=== PATIENT | female | born 1980 | race African-American/Black ===

== ENCOUNTER 2016-09-11 18:48 | Inpatient (IN) ==
[2016-09-11 21:26] LABS: Basophils # 0.1 10*3/uL (0.0-0.2); Basophils % 0.6 % (0.0-0.8); Hematocrit 34.3 VOL% (35.7-47.0); Hemoglobin 11.6 GM/DL (12.0-16.0); Immature Granulocytes % 1.8 %; Immature Granulocytes Absolute 0.21 #; Lymphocytes % 8.7 % (21.3-54.2); Mean Corpuscular HGB Conc 33.8 GM/DL (32-36); Mean Corpuscular Hemoglobin 30 PG (27-34); Mean Corpuscular Volume 87.5 FL (87-102); Mean Platelet Volume 10.6 FL (9.6-12.0); Monocytes # 0.2 10*3/uL (0.11-0.8); Monocytes % 1.5 % (1.7-12.7); Neutrophils # 10.4 10*3/uL (1.4-7.4); Neutrophils % 87.4 % (38.7-73.9); Platelet Count 272 T/CUMM (130-400); Red Blood Count 3.92 MC/CUMM (3.8-5.5); Red Cell Distribution Width 16.4 % (9.3-17.3); White Blood Count 11.8 T/CUMM (4-12)
[2016-09-11 21:43] LABS: Alanine Aminotransferase 47 U/L (13-56); Albumin 2.2 G/DL (3.4-5.0); Alkaline Phosphatase 103 U/L (45-117); Aspartate Amino Transferase 92 U/L (0-37); Bilirubin,Total < 0.39 MG/DL (0.2-1.0); Blood Urea Nitrogen 44 MG/DL (7-18); Calcium 8.6 MG/DL (8.5-10.1); Glucose 147 MG/DL (74-106); Osmolality,Calculated 277.5 MOS/KG (273-304); Potassium 3.4 MMOL/L (3.5-5.1); Sodium 132 MMOL/L (136-145); Total Protein 7.7 G/DL (6.4-8.3); Troponin I Only < 0.015 NG/ML (0.00-0.045)
[2016-09-11 21:52] LABS: Band Neutrophils 1 % (0-10); Lymphocytes 6 % (20-55); Platelet Estimate Normal; Polychromasia Slight; Segmented Neutrophils 90 % (50-85); Total Cells Counted 100
[2016-09-11] MEDS ORDERED: ACETAMINOPHEN 325 MG TABLET PO ONE (22:07)
[2016-09-11] MEDS ORDERED: SODIUM CHLORIDE 0.9% 500 ML IV STA (22:08)
[2016-09-11] MEDS ORDERED: ACETAMINOPHEN 325 MG TABLET ONE (23:03)
[2016-09-11 23:12] LABS: Amorphous Crystals,Urine Occasional /HPF (Few); Apearance,Urine CLOUDY (Clear); Bilirubin,Urine Negative (Negative); Blood, Urine Small mg/dL (Negative); Glucose,Urine (UA) 50 mg/dL (Negative); Ketones,Urine Negative (Negative); Nitrite,Urine Negative (Negative); Protein,Urine >=500 MG/DL; RBC,Urine 2 /HPF (0-4); Squamous Epithelial Cell,Urine Occasional /HPF (0-10); Urine Color Amber (Yellow); Urine Specific Gravity 1.017 (1.001-1.035); Urine Urobilinogen < 2.0 EU/DL (0.2-1.0); WBC,Urine 2 /HPF (0-6)
[2016-09-11] MEDS ORDERED: LEVOFLOXACIN INJ 500 MG in PREMIX 1 EACH IV STA (23:42)
[2016-09-11] MEDS ORDERED: DILTIAZEM 50 MG/10 ML VIAL IV STA (23:43)
[2016-09-11] MEDS ORDERED: LEVOFLOXACIN INJ 100 ML IV ONE (23:58)
[2016-09-12 00:05] LABS: INR 1.2; PT Patient Result 12.4 SECS
--- NOTE | 2016-09-12 00:25 | Emergency Department Note ---
IJhon Mantricia, am scribing for, and in the presence of, Tej Acuña M.D. 21:00. IArianne Howard T, M.D., personally performed the services described in this documentation, ascribed by Jodie Ferreira in my presence, and it is both accurate and complete . Arrival - Arrival Chief Complaint: Non-Specific Stated Complaint: SOB/UNABLE TO KEEP ANYTHING DOWN/PROBLEMS WITH RX ED Nursing Triage Note: Pt to triage with c/o not feeling well. Family states pt has not been eating, feeling very nausea,and weakness. Pt does states she had some medication change recently, but she was feeling like this before the medication change. Mode of Arrival: Wheelchair Limitations: No Limitations Source: Patient, Family Time Seen by Provider: 09/11/16 20:41 - History of Present Illness HPI Narrative: Pt is a 35 y/o black female arriving to ED via wheelchair with c/o body aches that onset 4 days ago. Pt also c/o generalized weakness, SOB, nausea, and waxing and waning chest pain. Pt is a very poor historian but states that she has been "feeling bad" all week. She also reports that she has been retaining fluid and has gained 100 pounds within 2 years. Pt was recently Dx with HTN and DM and is currently taking both Metformin and 40 units of insulin daily. Family is worried that pt is undergoing CHF. No other complaints were reported to ED. Onset (ago): day(s) Consistency: constant Severity: mild Allergies/Adverse Reactions: Allergies Allergy/AdvReac Type Severity Reaction Status Date / Time No Known Allergies Allergy Unverified 09/11/16 19:20 Home Medications: Home Medications Medication Instructions Recorded Confirmed Type Atenolol 50 mg PO DAILY 09/11/16 09/11/16 History Chlorthalidone 25 mg PO DAILY 09/11/16 09/11/16 History Insulin Degludec [Tresiba 40 unit SUBCUT QAM 09/11/16 09/11/16 History Flextouch U-100] Lisinopril 20 mg PO DAILY 09/11/16 09/11/16 History Losartan Potassium 100 mg PO DAILY 09/11/16 09/11/16 History Metformin HCl 1,000 mg PO BID 09/11/16 09/11/16 History Review of System - Review of System 12 point system: reviewed and no additional remarkable complaints except as stated - Review of System Constitutional: Present: weakness, other (body aches). Absent: chills, diaphoresis Respiratory: Present: other (SOB). Absent: cough Gastrointestinal: Present: nausea. Absent: abdominal pain, vomiting, diarrhea Musculoskeletal: Absent: arm pain, back pain, leg pain, neck pain Medical,Surgical,& Family Hx - Medical History Cardio: History of: Hypertension Endocrine: History of: Diabetes Mellitus (IDDM) - Social History Smoking Status: Unknown if ever smoked Frequency of Alcohol Use: None Type of Drug Use: None Exam Vital Signs: Vital Signs Temperature 100.1 F H 09/11/16 19:13 Pulse Rate 144 H 09/11/16 19:13 Respiratory Rate 18 09/11/16 19:13 Blood Pressure 96/67 09/11/16 19:13 O2 Sat by Pulse Oximetry 91 L 09/11/16 19:13 - General General appearance: alert, in no apparent distress, obese - Head Head exam: Present: atraumatic, normocephalic, normal inspection - Eye Eye exam: Present: normal appearance, PERRL, EOMI - ENT ENT exam: Present: normal exam, normal oropharynx, mucous membranes moist, TM's normal bilaterally, normal external ear exam - Neck Neck exam: Present: normal inspection, full ROM, trachea midline. Absent: tenderness - Chest Chest inspection: Present: normal inspection, symmetric chest wall rise. Absent : tenderness - Respiratory Respiratory exam: Present: normal lung sounds bilaterally - Cardiovascular Cardiovascular exam: Present: normal rhythm, tachycardia, normal heart sounds - Abdominal Exam Abdominal exam: Present: soft, distention, normal bowel sounds. Absent: tenderness, guarding, rebound - Extremities Exam Extremities exam: Present: normal inspection, full ROM, normal capillary refill. Absent: tenderness, pedal edema - Back Exam Back exam: Present: normal inspection, full ROM. Absent: tenderness - Neurological Exam Neurological exam: Present: alert, oriented X3, CN II-XII intact, normal gait, reflexes normal - Psychiatric Psychiatric exam: Present: normal affect, normal mood - Skin Skin exam: Present: warm, dry, intact, normal color Course Course Narrative: Medical decision making: Patient's history and exam suggests acute versus chronic illness, possible pneumonia versus mass versus multiple pathologies causing various symptoms. Abnormal chest x-ray. Will initiate treatment for pneumonia and contact hospitalist for admission. Results - Labs CBC & BMP: 09/11/16 21:14 09/11/16 21:14 Lab Results: I have reviewed the patients labs - Diagnostic Findings Procedure: Chest x-ray: image reviewed by me (R middle lobe infiltrate vs mass) Disposition Clinical Impression: Right middle lobe pneumonia, Acute renal insufficiency Case discussed with: patient, patient's family Disposition: Still a Patient Condition: Stable Time of Disposition: 23:43
[2016-09-12] MEDS ORDERED: ACETAMINOPHEN 325 MG TABLET PO PRN (01:36)
[2016-09-12] MEDS ORDERED: GLUCAGON 1 MG VIAL IM PRN (01:36)
[2016-09-12] MEDS ORDERED: DEXTROSE 50% 25 GM/50 ML VIAL IV PRN (01:36)
[2016-09-12] MEDS ORDERED: ONDANSETRON 4 MG/2 ML VIAL IV PRN (01:36)
--- NOTE | 2016-09-12 01:45 | Hospitalist History & Physical ---
Assessment and Plan (1) History of hypertension Status: Acute Current Visit: Yes (2) Diabetes Status: Acute Current Visit: Yes (3) Right middle lobe pneumonia Status: Acute Current Visit: Yes (4) Acute renal insufficiency Status: Acute Assessment and plan: Our plan for this patient will be admitting her to our service. I want to have her kidneys evaluated with a renal ultrasound and nephrology to see her. She has never seen a kidney specialist before. She is only been diagnosed recently told that she has had some kidney problems but she was real vague about what she was told. And will order a spot protein creatinine ratio in addition to the ultrasound. Her chest x-ray is significant for a middle lobe pneumonia although this could be a possible mass I would like pulmonary to see her because of this chest x-ray. Patient's family was concerned about heart failure but BNP is not elevated. Will reevaluate patient in the morning and adjust plans appropriate. Current Visit: Yes History of Present Illness Chief complaint: Just not feeling good History of present illness: Ms. Vargas is a 35 year old female past medical history significant for diabetes, hypertension and possible kidney issues who is followed by Dr. Thornton at [facility]. She reports that she has not been feeling right for the past week. She denies cough and denies fever. Her family reports that she has had lower extremity edema and has been short of breath. Patient reports that she has been weak. And felt like since she has been retaining more fluid. Patient had an abnormal chest x-ray. Patient also found to have elevated BUN and creatinine. Initially she denied any chronic kidney problems but then said that she thought that Dr. Butterfield had mentioned something about that to her. I have no baseline lab value at this time. Patient is receiving a bolus of IV fluids in the emergency room. I was consulted to admit her through the emergency room Home Medications Medication Instructions Recorded Confirmed Type Atenolol 50 mg PO DAILY 09/11/16 09/11/16 History Chlorthalidone 25 mg PO DAILY 09/11/16 09/11/16 History Insulin Degludec [Tresiba 40 unit SUBCUT QAM 09/11/16 09/11/16 History Flextouch U-100] Lisinopril 20 mg PO DAILY 09/11/16 09/11/16 History Losartan Potassium 100 mg PO DAILY 07/15/17 07/15/17 History Metformin HCl 1,000 mg PO BID 09/11/16 09/11/16 History Allergies Allergy/AdvReac Type Severity Reaction Status Date / Time No Known Allergies Allergy Unverified 09/11/16 19:20 Medical,Surgical,& Family Hx - Medical History Cardio: History of: Hypertension Endocrine: History of: Diabetes Mellitus (IDDM) - Surgical History Surgical History: noncontributory (none) - Family History Family History: Reports;: Family Diabetes, Family Heart Disease - Social History Smoking Status: Never smoker Frequency of Alcohol Use: None Type of Drug Use: None 12 point system: reviewed and no additional remarkable complaints except as stated Exam - Constitutional Vitals: Period Temp Pulse Resp BP Sys/Riley Pulse Ox Last 24 Hr 100.1 F-100.1 F 142-144 18-18 96-96/- 91 - General General appearance: alert, in no apparent distress, obese - Head Head exam: Present: atraumatic, normocephalic, normal inspection - Eye Eye exam: Present: normal appearance, PERRL, EOMI - ENT ENT exam: Present: normal exam, normal oropharynx, mucous membranes moist, TM's normal bilaterally, normal external ear exam - Neck Neck exam: Present: normal inspection, full ROM, trachea midline. Absent: tenderness - Chest Chest inspection: Present: normal inspection, symmetric chest wall rise. Absent : tenderness - Respiratory Respiratory exam: Present: normal lung sounds bilaterally - Cardiovascular Cardiovascular exam: Present: normal rhythm, normal heart sounds - Abdominal Exam Abdominal exam: Present: soft, distention, normal bowel sounds. - Extremities Exam Extremities exam: Present: normal inspection, full ROM, normal capillary refill - Back Exam Back exam: Present: normal inspection, full ROM. Absent: tenderness - Neurological Exam Neurological exam: Present: alert, oriented X3, CN II-XII intact, normal gait, reflexes normal - Psychiatric Psychiatric exam: Present: normal affect, normal mood - Skin Skin exam: Present: warm, dry, intact, normal color Results - Labs CBC & BMP: 09/11/16 21:14 09/11/16 21:14
[2016-09-12] MEDS: cefTRIAXone 1,000 MG in SODIUM CHLORIDE 0.9% 100 ML IV SCH (03:25)
[2016-09-12] MEDS: AZITHROMYCIN INJ 500 MG in SODIUM CHLORIDE 0.9% 250 ML IV SCH (04:19)
[2016-09-12 05:33] LABS: Basophils # 0.1 10*3/uL (0.0-0.2); Basophils % 0.5 % (0.0-0.8); Hematocrit 30.9 VOL% (35.7-47.0); Hemoglobin 10.3 GM/DL (12.0-16.0); Immature Granulocytes % 1.5 %; Immature Granulocytes Absolute 0.16 #; Lymphocytes # 0.7 10*3/uL (1.4-4.0); Lymphocytes % 6.4 % (21.3-54.2); Mean Corpuscular HGB Conc 33.3 GM/DL (32-36); Mean Corpuscular Hemoglobin 29 PG (27-34); Mean Platelet Volume 10.4 FL (9.6-12.0); Monocytes # 0.2 10*3/uL (0.11-0.8); Monocytes % 1.8 % (1.7-12.7); Neutrophils # 9.6 10*3/uL (1.4-7.4); Neutrophils % 89.8 % (38.7-73.9); Platelet Count 260 T/CUMM (130-400); Red Blood Count 3.51 MC/CUMM (3.8-5.5); Red Cell Distribution Width 16.4 % (9.3-17.3); White Blood Count 10.7 T/CUMM (4-12)
[2016-09-12 05:58] LABS: Albumin 1.8 G/DL (3.4-5.0); Bilirubin,Total 0.4 MG/DL (0.2-1.0); Calcium 7.8 MG/DL (8.5-10.1); Osmolality,Calculated 285.1 MOS/KG (273-304); Potassium 3.1 MMOL/L (3.5-5.1); Total Protein 6.4 G/DL (6.4-8.3)
[2016-09-12 06:30] LABS: Anisocytosis 1+; Band Neutrophils 2 % (0-10); Lymphocytes 6 % (20-55); Macrocytosis 1+; Metamyelocytes 3 %; Myelocytes 2 %; Platelet Estimate Normal; Polychromasia Few; Segmented Neutrophils 87 % (50-85); Total Cells Counted 100
[2016-09-12 07:27] LABS: Protein/Creatinine Ratio,Urine 1.7 RATIO
[2016-09-12] MEDS: ALBUTEROL/IPRATROPIUM 3 ML NEB RESP TX SCH ×3 (09:00→19:29)
--- NOTE | 2016-09-12 09:11 | Nephrology Consult Note ---
History of Present Illness Chief complaint: Acute renal failure versus acute on chronic renal failure History of present illness: Ms. Vargas is a 35 year old female with history of hypertension diabetes presented with shortness of breath and fatigue. She was diagnosed with pneumonia. Patient was found to have elevated creatinine of 5.5. There is question of whether she has underlying chronic kidney disease. Nephrology is been consulted for renal management. No history of NSAID use. She is on TRACI inhibitor and she gives a history of NSAID use on a weekly basis. No changes in her medications. Pending renal ultrasound at this time. Home Medications Medication Instructions Recorded Confirmed Type Atenolol 50 mg PO DAILY 09/11/16 09/12/16 History Chlorthalidone 25 mg PO DAILY 09/11/16 09/12/16 History Insulin Degludec [Tresiba 40 unit SUBCUT QAM 09/11/16 09/12/16 History Flextouch U-100] Lisinopril 20 mg PO DAILY 09/11/16 09/12/16 History Losartan Potassium 100 mg PO DAILY 09/11/16 09/12/16 History Metformin HCl 1,000 mg PO BID 09/11/16 09/12/16 History Allergies Allergy/AdvReac Type Severity Reaction Status Date / Time No Known Allergies Allergy Unverified 09/11/16 19:20 Medical,Surgical,& Family Hx - Medical History Cardio: History of: Hypertension Psychological: History of: Anxiety Disorders, Depression (SINCE DIAGNOSED DIABETES NOV 2015) HEENT: History of: HEENT Problems (NASAL DRAINAGE X 2 WEEKS) Endocrine: History of: Diabetes Mellitus (IDDM) Gastrointestinal: History of: GI Problems (nausea,diarrhea presently x 2 days) Reproductive: History of: Complication (MISCARRIAGE X 1 (2 LIVE ) ), Reproductive Problems (LMP SEP 2015) - Surgical History HEENT Surgeries: Patient denies: Eye Surgery, Tonsilectomy & Adenoidectomy Reproductive Surgeries: Surgical HX of;: Dilation and Curettage, Gynecologic Surgery - Family History Family History: Reports;: Family Cancer (DAD(PROSTATE) PAT GM (KIDNEY)), Family Diabetes (MAT AUNT,PAT GREAT AUNT), Family Heart Disease, Family Hematology ( PAT COUSINS (LUPUS,SS ANEMIA)), Family Hypertension (PAT GM,PAT UNCLES X 3), Family Stroke (PAT COUSIN) Denies;: Family Anesthesia Reaction, Family Psychiatric Problems, Additional Family History - Social History Smoking Status: Never smoker Frequency of Alcohol Use: None Type of Drug Use: None Review of Systems ROS unobtainable: due to mental status (Patient is just very lethargic at times. ) Constitutional: fatigue Respiratory: dyspnea Exam - Vital Signs Vital signs: Period Temp Pulse Resp BP Sys/Riley Pulse Ox Last 24 Hr 97.3 F-100.1 F 96-144 16-40 94-151/52-80 91-95 - General Appearance General appearance: well-developed, well-nourished, appears started age, fatigue EENT: ATNC Neck: supple Respiratory: clear Cardiology: regular rate, regular rhythm Gastrointestinal: normoactive bowel sounds Integumentary: no rash Musculoskeletal: no clubbing Psychiatric: mood/affect appropriate Results - Labs CBC & BMP: 09/12/16 05:15 09/12/16 05:15 Assessment and Plan (1) Right middle lobe pneumonia Status: Acute Current Visit: Yes (2) Acute renal insufficiency Status: Chronic Assessment and plan: Renal ultrasound. Avoid nephrotoxic agents. Daily BMP. Current Visit: Yes (3) History of hypertension Status: Chronic Current Visit: Yes (4) Diabetes Status: Chronic Current Visit: Yes Qualifiers: Diabetes mellitus type: type 2 Chronic kidney disease stage: stage 4 ( severe)
--- NOTE | 2016-09-12 09:37 | XRay Report ---
Exam: XR abdomen 1V Date: 09/11/2016 9:00 PM Comparison: None Indication: Generalized abdominal pain Technique:[Supine abdomen] Findings: Nonobstructed bowel gas pattern. Parenchymal findings noted in the visualized right lung. No acute osseous findings. Impression: Nonobstructed bowel gas pattern. No definite acute abdominal pathology noted. Limited evaluation of the parenchymal findings in the right lung. PROCEDURE INTERPRETED AT [facility] DEPARTMENT OF RADIOLOGY Final Report Signed by: Dr. Ruby Monique
--- NOTE | 2016-09-12 09:40 | XRay Report ---
XR chest 2V Date: 09/11/2016 9:00 PM History: Chest pain, shortness of breath Comparison: None Technique: Supine and left lateral recumbent chest Findings: The heart is normal in size. Diffuse parenchymal findings are noted in the right perihilar location extending into the right upper lobe, right middle lobe, and right lower lobe. There is associated right hilar prominence with smaller pulmonary opacity in the right lower lobe. No acute osseous findings. Impression: Findings which can be seen with right perihilar pneumonia involving the right upper lobe, right middle lobe, and right lower lobe. There is associated atelectasis and indeterminate pulmonary opacities. It is difficult to exclude additional underlying adenopathy or mass and follow-up chest x-ray is recommended. PROCEDURE INTERPRETED AT [facility] DEPARTMENT OF RADIOLOGY Final Report Signed by: Dr. Ruby Monique
--- NOTE | 2016-09-12 09:45 | Ultrasound Report ---
Exam: US renal Bilateral Date: 09/12/2016 4:00 AM Comparison: None Indication: Elevated creatinine Technique:[Multiple transabdominal real-time scans were obtained of the kidneys. Color-flow scans obtained. Ultrasound images were captured and stored.] Findings: Right kidney measures 129 x 55 x 44 mm. Left kidney measures 146 x 70 x 61 mm. No masses or hydronephrosis. Color-flow documented in the kidneys. Impression: The left kidney is larger in size in the right with no masses or hydronephrosis. Slightly inhomogeneous echogenicity in the left kidney which could be related to possible medical renal disease. PROCEDURE INTERPRETED AT [facility] DEPARTMENT OF RADIOLOGY Final Report Signed by: Dr. Ruby Monique
[2016-09-12] MEDS: INSULIN REGULAR 100 UNIT/ML SUBCUT SCH ×4 (09:49→21:00)
[2016-09-12] MEDS: PANTOPRAZOLE 40 MG TABLET PO SCH (09:49)
[2016-09-12] MEDS: ENOXAPARIN 30 MG/0.3 ML SYRINGE SUBCUT SCH (09:49)
--- NOTE | 2016-09-12 10:01 | Pulmonology Consult Note ---
Assessment and Plan (1) Right middle lobe pneumonia Status: Acute Assessment and plan: Apparently community-acquired right middle and lower lobe pneumonia. Agree with antibiotics chosen. Cultures and urine antigens will be checked. She also has acute renal changes it appears and is diabetic. She would be at risk for gram-negative infections or unusual infections such as fungi. Current Visit: Yes (2) Acute renal insufficiency Status: Acute Assessment and plan: Creatinine is 5.5. Renal is seen. Serum albumin 2.2. Current Visit: Yes (3) History of hypertension Status: Acute Assessment and plan: Blood pressure around 150/80. Probably a little high for a diabetic but not bad. Current Visit: Yes (4) Diabetes Status: Acute Assessment and plan: Defer to primary service. Current Visit: Yes History of Present Illness Chief complaint: Cough fever aching History of present illness: Ms. Vargas is a 35 year old female with the acute onset 5 days ago with aching all over. She was admitted and found to have consolidation of the right middle lobe and partial right lower lobe. She is a former smoker quit 2 years ago. She has diabetes and is been on insulin for a year. Her creatinine is elevated at 5.5 and she has low serum albumin. It appears that she has some chronic renal disease more than she had appreciated. Home Medications Medication Instructions Recorded Confirmed Type Atenolol 50 mg PO DAILY 09/11/16 09/12/16 History Chlorthalidone 25 mg PO DAILY 09/11/16 09/12/16 History Insulin Degludec [Tresiba 40 unit SUBCUT QAM 09/11/16 09/12/16 History Flextouch U-100] Lisinopril 20 mg PO DAILY 09/11/16 09/12/16 History Losartan Potassium 100 mg PO DAILY 09/11/16 09/12/16 History Metformin HCl 1,000 mg PO BID 09/11/16 09/12/16 History Allergies Allergy/AdvReac Type Severity Reaction Status Date / Time No Known Allergies Allergy Unverified 09/11/16 19:20 12 point system: reviewed and no additional remarkable complaints except as stated - Constitutional Constitutional: Present: daytime sleepiness - Respiratory Respiratory: Present: cough, dyspnea - Neurological Neurological: Present: confusion Exam (Pulmonay) H&P - Constitutional Vitals: Period Temp Pulse Resp BP Sys/Riley Pulse Ox Last 24 Hr 97.3 F-100.1 F 96-144 16-40 94-151/52-80 91-95 Exam: Patient is a bit drowsy but arousable and answers questions. Vital signs normal. Pupils react to light. Throat is clear. Neck is somewhat full probably a goiter. I do not hear any bruits over her neck. Chest reveals rales primarily over the right middle lobe some of the right lower lobe area left lung is clear. Heart normal rate rhythm no murmurs. PMI is not displaced. Abdomen soft nontender no masses. Bowel sounds present. Extremities no clubbing cyanosis. Trace of edema. Calves nontender. Medical,Surgical,& Family Hx - Medical History Cardio: History of: Hypertension Psychological: History of: Anxiety Disorders, Depression (SINCE DIAGNOSED DIABETES NOV 2015) HEENT: History of: HEENT Problems (NASAL DRAINAGE X 2 WEEKS) Endocrine: History of: Diabetes Mellitus (IDDM) Gastrointestinal: History of: GI Problems (nausea,diarrhea presently x 2 days) Reproductive: History of: Complication (MISCARRIAGE X 1 (2 LIVE ) ), Reproductive Problems (LMP SEP 2015) - Surgical History HEENT Surgeries: Patient denies: Eye Surgery, Tonsilectomy & Adenoidectomy Reproductive Surgeries: Surgical HX of;: Dilation and Curettage, Gynecologic Surgery - Family History Family History: Reports;: Family Cancer (DAD(PROSTATE) PAT GM (KIDNEY)), Family Diabetes (MAT AUNT,PAT GREAT AUNT), Family Heart Disease, Family Hematology ( PAT COUSINS (LUPUS,SS ANEMIA)), Family Hypertension (PAT GM,PAT UNCLES X 3), Family Stroke (PAT COUSIN) Denies;: Family Anesthesia Reaction, Family Psychiatric Problems, Additional Family History - Social History Smoking Status: Never smoker Frequency of Alcohol Use: None Type of Drug Use: None Results - Labs CBC & BMP: 09/12/16 05:15 09/12/16 05:15 Lab Results: I have reviewed the past 24 hour labs - Diagnostic Findings Procedure: Chest x-ray: image reviewed by me (Right middle lobe consolidation extending into the probable superior segment right lower lobe. Left lung is spared.)
--- NOTE | 2016-09-12 12:12 | Hospitalist Progress Note ---
Assessment and Plan (1) Right middle lobe pneumonia Status: Acute Assessment and plan: Impression: 1. Right middle lobe pneumonia. Symptoms are certainly not typical for acute bacterial pneumonia 2. Probable chronic kidney disease. I cannot tell if there is an acute component at this time 3. Type II DM 4. Nonnephrotic proteinuria 5. Elevated AST, etiology not known. Statistically, this would represent hepatic steatosis 6. Possible metabolic encephalopathy Plan: Follow kidney function. Ultrasound of the abdomen to evaluate elevated liver enzymes. Check sed rate and TSH. She may need a CT of the chest. This note was completed using [employer] voice recognition software. There may be associate professor of theology errors as a result. Current Visit: Yes Qualifiers: Pneumonia type: due to unspecified organism Qualified Code(s): J18.1 - Lobar pneumonia, unspecified organism Hospitalist: Subjective Interval history: Patient reports a subacute onset of fatigue, peripheral edema, and dyspnea. She has been diagnosed as being hypertensive less than a year ago, and diagnosed as being diabetic about 6-8 months ago. She had originally been under the care of Dr. Lisy Dong, but switched to Dr. Thornton about 5 months ago. She thinks that she might have been told that she had kidney disease, but she is not sure. She does recall some medication revision. She had noted some generalized edema and exertional dyspnea that began last year. She reports that the edema was so bad that the skin would break down and weep. She has been on diuretics for this, and the edema seems to have resolved. She has not had any fever, significant cough, or sputum production. Once she arrived to her room, she had several episodes of stool incontinence. The lady with the patient also notes that the patient has had a change in her mental status, and that her affect seems blunted. 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 She has not had any nausea or vomiting. She has not had any significant chest discomfort she reports some generalized body aches and pains. There is a family history of seizure disorder, but not much else. Chest x-ray on admission showed a large right middle lobe infiltrate. She was also noted to have a creatinine of 5. Exam - Constitutional Vitals: Period Temp Pulse Resp BP Sys/Riley Pulse Ox Last 24 Hr 97.3 F-100.1 F 96-144 16-40 94-151/52-80 91-95 Vital signs are noted above. Heart is regular and rapid at rest with no murmur or gallop that I could appreciate. She has a few scattered rales in the right chest, but otherwise appears to be moving air fairly well. Abdomen is tender to palpation and seemed protuberant. There may be a millimeter of edema in the extremities, but this is unimpressive. On neurologic examination, she has no deficits of the cranial nerves that I can demonstrate. 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 Lower extremity strength is at least 4/5. I am not able to elicit any pathologic reflexes. Plantars downgoing. Speech is normal, but there is a tremor of the mouth when she tries to speak. Results - Labs CBC & BMP: 09/12/16 05:15 09/12/16 05:15 Lab Results: I have reviewed the past 24 hour labs (AST is elevated. Urine shows 4+ protein. She is not nephrotic according to urine protein/creatinine)
[2016-09-13] MEDS: ALBUTEROL/IPRATROPIUM 3 ML NEB RESP TX SCH ×4 (00:36→20:25)
[2016-09-13] MEDS: AZITHROMYCIN INJ 500 MG in SODIUM CHLORIDE 0.9% 250 ML IV SCH (03:38)
[2016-09-13 06:45] LABS: Magnesium 2.4 MG/DL (1.8-2.4); Osmolality,Calculated 287.2 MOS/KG (273-304); Potassium 3.2 MMOL/L (3.5-5.1)
--- NOTE | 2016-09-13 08:15 | Pulmonology Progress Note ---
Pulmonary - PN: Subj Interval history: 09/13/16 35-year-old previously healthy lady other than diabetes that came in with fairly extensive right middle lobe and right lower lobe pneumonia. Acute kidney failure with creatinine up to 7.6. Nephrology is helping evaluate. She is a little more hypoxic today. Will put on nasal biprong's. Blood cultures are negative. Serologic studies pending. Exam (Progress Note) - Constitutional Vitals: Period Temp Pulse Resp BP Sys/Riley Pulse Ox Last 24 Hr 97.2 F-99.5 F 78-112 16-40 126-160/72-86 87-100 Exam: Patient is alert a little bit sluggish with her speech. Temperature 99. Vital signs otherwise normal. O2 sat 87% room air. Pupils react to light. Throat is clear. Neck is supple no bruits. Chest shows rales over the right middle lobe primarily. Heart normal rate and rhythm no murmurs. Abdomen soft nontender no masses. Bowel sounds present. Extremities no clubbing cyanosis. Trace of pedal edema. Calves nontender. Results - Labs CBC & BMP: 09/12/16 05:15 09/13/16 05:58 Lab Results: I have reviewed the past 24 hour labs Assessment and Plan (1) Right middle lobe pneumonia Status: Acute Assessment and plan: Apparently community-acquired right middle and lower lobe pneumonia. Agree with antibiotics chosen. Cultures and urine antigens will be checked. She also has acute renal changes it appears and is diabetic. She would be at risk for gram-negative infections or unusual infections such as fungi. 09/13/2016 right middle lobe right lower lobe infiltrate with consolidation on plain x-ray. On empiric antibiotics. Having some hypoxemia. Adding oxygen. Acute kidney failure as well. Diabetic. Current Visit: Yes Qualifiers: Pneumonia type: due to unspecified organism Qualified Code(s): J18.1 - Lobar pneumonia, unspecified organism (2) Acute renal insufficiency Status: Chronic Assessment and plan: Creatinine is 5.5. Renal is seen. Serum albumin 2.2. 09/13/2016 creatinine up to 7.6. Defer to nephrology. No significant hematuria. Current Visit: Yes (3) History of hypertension Status: Chronic Assessment and plan: Blood pressure around 150/80. Probably a little high for a diabetic but not bad. 09/13/2016 blood pressure acceptable. Current Visit: Yes (4) Diabetes Status: Chronic Assessment and plan: Defer to primary service. 09/13/2016 managing with sliding scale. Blood sugar in the mid to upper 100s. Current Visit: Yes Qualifiers: Diabetes mellitus type: type 2 Chronic kidney disease stage: stage 4 ( severe)
[2016-09-13] MEDS: cefTRIAXone 1,000 MG in SODIUM CHLORIDE 0.9% 100 ML IV SCH (08:54)
[2016-09-13] MEDS: INSULIN REGULAR 100 UNIT/ML SUBCUT SCH ×4 (08:55→22:12)
[2016-09-13] MEDS: ENOXAPARIN 30 MG/0.3 ML SYRINGE SUBCUT SCH (08:55)
[2016-09-13] MEDS: PANTOPRAZOLE 40 MG TABLET PO SCH (08:55)
--- NOTE | 2016-09-13 15:38 | Nephrology Progress Note ---
Nephrology - PN: Subj Interval history: Patient sitting up in chair visiting with family. She mentions feeling better than yesterday. Serum creatinine is noted to be trending up to 7.6. No fevers or chills. Of note urinalysis shows evidence of proteinuria. Further workup for proteinuria is been done. Patient has a history of diabetes that was recently diagnosed. Glucoses have been 139. No fevers or chills. She continues with her treatment for her underlying pneumonia. Exam (PN)-Nephrology - Vital Signs Vital signs: Period Temp Pulse Resp BP Sys/Riley Pulse Ox Last 24 Hr 97.2 F-99.5 F 78-110 16-20 126-160/72-92 87-100 - General Appearance General appearance: well-developed, well-nourished EENT: ATNC Neck: supple Respiratory: clear Cardiology: regular rate, regular rhythm Gastrointestinal: normoactive bowel sounds, no tenderness Neurologic: alert and oriented x3 Musculoskeletal: no clubbing Psychiatric: mood/affect appropriate - Lab 09/12/16 05:15 09/13/16 05:58 Most recent lab results Calcium 8.0 MG/DL (8.5-10.1) L 09/13/16 05:58 Magnesium 2.4 MG/DL (1.8-2.4) 09/13/16 05:58 Assessment and Plan (1) Right middle lobe pneumonia Status: Acute Current Visit: Yes Qualifiers: Pneumonia type: due to unspecified organism Qualified Code(s): J18.1 - Lobar pneumonia, unspecified organism (2) Acute renal insufficiency Status: Chronic Assessment and plan: Renal ultrasound. Avoid nephrotoxic agents. Daily BMP. Urine protein electrophoresis. Serum DEBORA. Hepatitis panel. Current Visit: Yes (3) History of hypertension Status: Chronic Current Visit: Yes (4) Diabetes Status: Chronic Current Visit: Yes Qualifiers: Diabetes mellitus type: type 2 Chronic kidney disease stage: stage 4 ( severe)
--- NOTE | 2016-09-13 21:15 | Hospitalist Progress Note ---
Assessment and Plan (1) Right middle lobe pneumonia Status: Acute Assessment and plan: Continue antibiotic Current Visit: Yes Qualifiers: Pneumonia type: due to unspecified organism Qualified Code(s): J18.1 - Lobar pneumonia, unspecified organism (2) Acute renal insufficiency Status: Chronic Assessment and plan: Nephrology is following for acute renal failure Current Visit: Yes (3) History of hypertension Status: Chronic Assessment and plan: Controlled hypertension Current Visit: Yes (4) Diabetes Status: Chronic Assessment and plan: This is controlled Current Visit: Yes Qualifiers: Diabetes mellitus type: type 2 Chronic kidney disease stage: stage 4 ( severe) Hospitalist: Subjective Interval history: 35 year old female with the acute onset 5 days ago with aching all over. She was admitted and found to have consolidation of the right middle lobe and partial right lower lobe. She is a former smoker quit 2 years ago. She has diabetes and is been on insulin for a year. Her creatinine was elevated at 5.5 . It appears that she has some chronic renal disease more than she had appreciated. Exam - Constitutional Vitals: Period Temp Pulse Resp BP Sys/Riley Pulse Ox Last 24 Hr 97.2 F-99.5 F 79-107 16-20 126-147/75-97 87-99 - Head Head exam: Present: normal inspection - Eye Eye exam: Present: EOMI Pupils: Present: FARIHA - ENT ENT exam: Present: normal exam - Neck Neck exam: Present: normal inspection - Respiratory Respiratory exam: Present: clear to auscultation bilaterally - Cardiovascular Cardiovascular exam: Present: regular rate and rhythm - GI/Abdominal GI/Abdominal exam: Present: normal bowel sounds - Extremities Exam Extremities exam: Present: normal inspection, normal capillary refill - Neurological Exam Neurological exam: Present: alert, oriented X3 Results - Labs CBC & BMP: 09/12/16 05:15 09/13/16 05:58
[2016-09-14] MEDS: ALBUTEROL/IPRATROPIUM 3 ML NEB RESP TX SCH ×4 (00:40→20:12)
--- NOTE | 2016-09-14 07:57 | XRay Report ---
History: Right middle lobe and right lower lobe pneumonia Date: 09/14/2016 Study: Chest x-ray AP portable Comparison exam: September 11, 2016 The dense pneumonia in the right middle lobe and lower lobe persists and is the same if not slightly worsened. The left lung remains clear. The cardiomediastinal silhouette is unchanged. The pulmonary vasculature is not engorged. The osseous structures are similar. Impression: Continued pneumonia in the right middle and lower lobes, the same or mildly worsened compared to the previous study. Radiographic follow-up to resolution is recommended to help exclude other underlying pathology PROCEDURE INTERPRETED AT [facility] Final Report Signed by: Dr. Kourtney Vogel
[2016-09-14 08:33] LABS: Calcium 8.2 MG/DL (8.5-10.1); Osmolality,Calculated 298.4 MOS/KG (273-304); Potassium 3.3 MMOL/L (3.5-5.1)
[2016-09-14 08:45] LABS: Immunoglobulin A 367 MG/DL (70-400); Immunoglobulin G 1030 MG/DL (700-1600); Immunoglobulin M 39 MG/DL (40-230)
[2016-09-14] MEDS ORDERED: AZITHROMYCIN 250 MG TABLET PO SCH (09:00)
[2016-09-14] MEDS: cefTRIAXone 1,000 MG in SODIUM CHLORIDE 0.9% 100 ML IV SCH (09:21)
[2016-09-14] MEDS: ENOXAPARIN 30 MG/0.3 ML SYRINGE SUBCUT SCH (09:22)
[2016-09-14] MEDS: PANTOPRAZOLE 40 MG TABLET PO SCH (09:22)
[2016-09-14] MEDS: INSULIN REGULAR 100 UNIT/ML SUBCUT SCH ×4 (09:22→22:00)
[2016-09-14 09:28] LABS: Hepatitis A Ab IgM Quant 0.09 Index; Hepatitis A Ab IgM Result Negative (Negative); Hepatitis B Core IgM Quant 0.14 Index; Hepatitis B Core IgM Result Negative (Negative); Hepatitis B Surface Ag Quant < 0.10 Index; Hepatitis B Surface Ag Result Negative (Negative); Hepatitis C Virus Ab Quant 0.21 Index; Hepatitis C Virus Ab Result Negative (Negative)
--- NOTE | 2016-09-14 09:44 | Pulmonology Progress Note ---
Pulmonary - PN: Subj Interval history: 09/13/16 35-year-old previously healthy lady other than diabetes that came in with fairly extensive right middle lobe and right lower lobe pneumonia. Acute kidney failure with creatinine up to 7.6. Nephrology is helping evaluate. She is a little more hypoxic today. Will put on nasal biprong's. Blood cultures are negative. Serologic studies pending. 09/14/2016 patient says she feels better and is a little less short of breath. However her creatinine has climbed to 8.3. Nephrology is following. Chest x- ray shows fairly extensive pneumonia on the right side slightly worse than earlier x-ray. Continuing broad antibiotics. Cultures and antigenic studies are pending. Exam (Progress Note) - Constitutional Vitals: Period Temp Pulse Resp BP Sys/Riley Pulse Ox Last 24 Hr 97.7 F-99.5 F 60-102 16-22 110-174/71-98 90-100 Exam: Patient is alert a little bit sluggish with her speech. Temperature 99. Vital signs otherwise normal. O2 sat 98% on 2 L.. Pupils react to light. Throat is clear. Neck is supple no bruits. Chest shows rales over the right middle lobe primarily. Heart normal rate and rhythm no murmurs. Abdomen soft nontender no masses. Bowel sounds present. Extremities no clubbing cyanosis. Trace of pedal edema. Calves nontender. Results - Labs CBC & BMP: 09/12/16 05:15 09/14/16 07:16 Lab Results: I have reviewed the past 24 hour labs - Diagnostic Findings Procedure: Chest x-ray: image reviewed by me (Right middle and lower lobe infiltrate slightly more extensive than before.) Assessment and Plan (1) Right middle lobe pneumonia Status: Acute Assessment and plan: Apparently community-acquired right middle and lower lobe pneumonia. Agree with antibiotics chosen. Cultures and urine antigens will be checked. She also has acute renal changes it appears and is diabetic. She would be at risk for gram-negative infections or unusual infections such as fungi. 09/13/2016 right middle lobe right lower lobe infiltrate with consolidation on plain x-ray. On empiric antibiotics. Having some hypoxemia. Adding oxygen. Acute kidney failure as well. Diabetic. 09/14/2016 community-acquired right middle lobe pneumonia occurring in the summer. Patient is on appropriate antibiotics. Awaiting cultures and antigenic studies. Current Visit: Yes Qualifiers: Pneumonia type: due to unspecified organism Qualified Code(s): J18.1 - Lobar pneumonia, unspecified organism (2) Acute renal insufficiency Status: Chronic Assessment and plan: Creatinine is 5.5. Renal is seen. Serum albumin 2.2. 09/13/2016 creatinine up to 7.6. Defer to nephrology. No significant hematuria. 09/14/2016 creatinine 8.3. Nephrology on the case. Current Visit: Yes (3) History of hypertension Status: Chronic Assessment and plan: Blood pressure around 150/80. Probably a little high for a diabetic but not bad. 09/13/2016 blood pressure acceptable. 09/14/1969 blood pressure fairly well controlled. Current Visit: Yes (4) Diabetes Status: Chronic Assessment and plan: Defer to primary service. 09/13/2016 managing with sliding scale. Blood sugar in the mid to upper 100s. 09/14/2016 blood sugars in the 200s now. Current Visit: Yes Qualifiers: Diabetes mellitus type: type 2 Chronic kidney disease stage: stage 4 ( severe)
[2016-09-14 10:08] LABS: Immunoglobulin A (Chem) 367 MG/DL (70-400); Immunoglobulin G (Chem) 1030 MG/DL (700-1600); Immunoglobulin M (Chem) 39 MG/DL (40-230)
--- NOTE | 2016-09-14 14:03 | Nephrology Progress Note ---
Nephrology - PN: Subj Interval history: 09/13/2016: Patient sitting up in chair visiting with family. She mentions feeling better than yesterday. Serum creatinine is noted to be trending up to 7.6. No fevers or chills. Of note urinalysis shows evidence of proteinuria. Further workup for proteinuria is been done. Patient has a history of diabetes that was recently diagnosed. Glucoses have been 139. No fevers or chills. She continues with her treatment for her underlying pneumonia. 09/14/2016: The patient is resting no acute changes. Hepatitis panel unremarkable. Pending renal ultrasound. However, serum creatinine continues to trend up to 8.3. No fevers or chills. No change in medications. At this time continue with workup. Have explained to patient and family that she will probably need a kidney biopsy. She does not look uremic. Further test ordered are: C3-C4, [id number] DNA Exam (PN)-Nephrology - Vital Signs Vital signs: Period Temp Pulse Resp BP Sys/Riley Pulse Ox Last 24 Hr 97.7 F-99.6 F 60-106 16-22 110-174/71-98 90-100 - General Appearance General appearance: well-developed, well-nourished EENT: ATNC Neck: supple Respiratory: clear Cardiology: no edema, regular rate, regular rhythm Gastrointestinal: normoactive bowel sounds, no tenderness Neurologic: alert and oriented x3 Musculoskeletal: no clubbing - Lab 09/12/16 05:15 09/14/16 07:16 Most recent lab results Calcium 8.2 MG/DL (8.5-10.1) L 09/14/16 07:16 Magnesium 2.4 MG/DL (1.8-2.4) 09/13/16 05:58 Assessment and Plan (1) Right middle lobe pneumonia Status: Acute Current Visit: Yes Qualifiers: Pneumonia type: due to unspecified organism Qualified Code(s): J18.1 - Lobar pneumonia, unspecified organism (2) Acute renal insufficiency Status: Chronic Assessment and plan: Avoid nephrotoxic agents. Daily BMP. C3-C4, and tidal stranded DNA Hepatitis panel. Will last for kidney biopsy Current Visit: Yes (3) History of hypertension Status: Chronic Current Visit: Yes (4) Diabetes Status: Chronic Current Visit: Yes Qualifiers: Diabetes mellitus type: type 2 Chronic kidney disease stage: stage 4 ( severe)
--- NOTE | 2016-09-14 14:30 | Infectious Disease Consult ---
Assessment and Plan (1) Legionella pneumonia Status: Acute Assessment and plan: Quite extensive right middle lobe pneumonia and also now right lower lobe seems involved. We have positive urine Legionella antigen. Patient has diabetes diagnosed less than a year ago and it is possibly uncontrolled which would predispose her to such severe pneumonia however there seems to be something underlying given the severe renal failure [can see renal insufficiency with Legionella pneumonia but would not expected to be this severe] and the overall appearance including the hair loss over the past 2 months. Recommendations: 1. I am going to change from azithromycin to levofloxacin 750 mg daily, since it is reported that levofloxacin might be slightly superior for Legionella pneumonia 2. We can stop ceftriaxone 3. Follow-up blood cultures 4. HIV serology for completeness sake 5. Consider evaluation for autoimmune/collagen vascular disease Thank you very much for the consult. Will follow. Discussed with Dr. Portillo Discussed with patient's stepmother at bedside Current Visit: Yes (2) Right middle lobe pneumonia Status: Acute Assessment and plan: Due to Legionella. Treatment with levofloxacin as above. We will plan to treat patient for at least 2 weeks possibly up to 3 weeks depending on how she does clinically. Current Visit: Yes Qualifiers: Pneumonia type: due to unspecified organism Qualified Code(s): J18.1 - Lobar pneumonia, unspecified organism (3) Acute renal insufficiency Status: Chronic Assessment and plan: Quite severe renal dysfunction. Nephrology evaluating. Patient may get renal biopsy. Current Visit: Yes (4) Diabetes Status: Chronic Current Visit: Yes Qualifiers: Diabetes mellitus type: type 2 Chronic kidney disease stage: stage 4 ( severe) (5) History of hypertension Status: Chronic Current Visit: Yes History of Present Illness Chief complaint: Legionella pneumonia History of present illness: Ms. 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 Her malaise worsened and by the time she came in she was more or less listless and confused. She never had any fever but she did have some rigors. She denies pleuritic chest pain or significant shortness of breath. Did not have any cough until she came in and now she is having mild cough but no sputum production. She has been anorexic but no nausea vomiting or diarrhea. No abdominal pain however she has noted abdominal distention for the past 2 months. Also admits to hair loss over the past 2 months, most of her hair fell out. She was told some months ago that she has some kidney abnormality but was not sure how severe this was. On admission she was found to have a severe right sided pneumonia and acute kidney failure with creatinine over 5. Urine Legionella antigen came back positive today and I am asked to assist with management. No ill contacts. The patient did visit [place] in mid July and stayed in a cabin. She said she did not go in the hot tub. Home Medications Medication Instructions Recorded Confirmed Type Atenolol 50 mg PO DAILY 09/11/16 09/12/16 History Chlorthalidone 25 mg PO DAILY 09/11/16 09/12/16 History Insulin Degludec [Tresiba 40 unit SUBCUT QAM 09/11/16 09/12/16 History Flextouch U-100] Lisinopril 20 mg PO DAILY 09/11/16 09/12/16 History Losartan Potassium 100 mg PO DAILY 09/11/16 09/12/16 History Metformin HCl 1,000 mg PO BID 09/11/16 09/12/16 History Allergies Allergy/AdvReac Type Severity Reaction Status Date / Time No Known Allergies Allergy Unverified 09/11/16 19:20 12 point system: reviewed and no additional remarkable complaints except as stated (Per HPI) Medical,Surgical,& Family Hx - Medical History Cardio: History of: Hypertension Psychological: History of: Anxiety Disorders, Depression (SINCE DIAGNOSED DIABETES NOV 2015) HEENT: History of: HEENT Problems (NASAL DRAINAGE X 2 WEEKS) Endocrine: History of: Diabetes Mellitus (IDDM) Gastrointestinal: History of: GI Problems (nausea,diarrhea presently x 2 days) Reproductive: History of: Complication (MISCARRIAGE X 1 (2 LIVE ) ), Reproductive Problems (LMP SEP 2015) - Surgical History HEENT Surgeries: Patient denies: Eye Surgery, Tonsilectomy & Adenoidectomy Reproductive Surgeries: Surgical HX of;: Dilation and Curettage, Gynecologic Surgery - Family History Family History: Reports;: Family Cancer (DAD(PROSTATE) PAT GM (KIDNEY)), Family Diabetes (MAT AUNT,PAT GREAT AUNT), Family Heart Disease, Family Hematology ( PAT COUSINS (LUPUS,SS ANEMIA)), Family Hypertension (PAT GM,PAT UNCLES X 3), Family Stroke (PAT COUSIN) Denies;: Family Anesthesia Reaction, Family Psychiatric Problems, Additional Family History - Social History Smoking Status: Never smoker Frequency of Alcohol Use: None Type of Drug Use: None Infectious Disease Exam H&P - Constitutional Vitals: Vital Signs Temp Pulse Resp BP Pulse Ox 99.6 F 106 H 18 145/89 90 L 09/14/16 11:45 09/14/16 11:45 09/14/16 11:45 09/14/16 11:45 09/14/16 11:45 Intake and Output 09/13/16 09/14/16 09/14/16 23:59 07:59 15:59 Other: Voiding Method Toilet Toilet # Voids 1 3 # Bowel Movements 0 0 Exam: General: Patient looks chronically ill and older than her stated age however she was nontoxic appearing, smiling HEENT: Mucous membranes pale pink and moist, anicteric acyanotic, FARIHA, no oropharyngeal exudates, her hair is abnormally thin and short Neck: Supple, no thyroid gland enlargement, no lymphadenopathy Respiratory system: Breath sounds vesicular, coarse crepitations throughout right lung field anteriorly and posteriorly, no wheezes Cardiovascular: Normal S1 and S2, no murmurs appreciated Abdomen: Normal bowel sounds, soft nontender throughout, no organomegaly or mass Genitourinary: No suprapubic pain or bladder distention Extremities: Very mild bilateral lower extremity edema, there is thickening and hyperpigmentation of the skin of the distal legs as if from past chronic edema which has resolved Skin: No rash Reports - Labs CBC & BMP: 09/12/16 05:15 09/14/16 07:16 Labs: Laboratory Results - last 24 hr 09/11/16 09/12/16 09/13/16 21:14 10:30 15:34 Sodium Potassium Chloride Carbon Dioxide Anion Gap BUN Creatinine GFR Calculation BUN/Creatinine Ratio Glucose POC Glucose 215 H Calculated Osmolality Calcium TSH, Ultra Sensitive 0.2 L Protein/Creatinin Ratio IgG IgG Total IgA IgA Total IgM IgM Total DEBORA Interpretation Hepatitis A IgM Ab Hep Bs Antigen Hep B Core IgM Ab Hepatitis C Antibody Ur L.pneumophila Ag Positive A 09/13/16 09/14/16 09/14/16 20:35 07:16 07:16 Sodium 133 L Potassium 3.3 L Chloride 95 L Carbon Dioxide 23 Anion Gap 18.3 H BUN 76 H Creatinine 8.30 H GFR Calculation 8 BUN/Creatinine Ratio 9.00 Glucose 270 H POC Glucose 236 H Calculated Osmolality 298.4 Calcium 8.2 L TSH, Ultra Sensitive Protein/Creatinin Ratio IgG IgG Total IgA IgA Total IgM IgM Total DEBORA Interpretation Hepatitis A IgM Ab Negative Hep Bs Antigen Negative Hep B Core IgM Ab Negative Hepatitis C Antibody Negative Ur L.pneumophila Ag 09/14/16 09/14/16 09/14/16 07:16 07:16 07:54 Sodium Potassium Chloride Carbon Dioxide Anion Gap BUN Creatinine GFR Calculation BUN/Creatinine Ratio Glucose POC Glucose 280 H Calculated Osmolality Calcium TSH, Ultra Sensitive Protein/Creatinin Ratio IgG 1030 IgG Total 1030 IgA 367 IgA Total 367 IgM 39 L IgM Total 39 L DEBORA Interpretation Hepatitis A IgM Ab Hep Bs Antigen Hep B Core IgM Ab Hepatitis C Antibody Ur L.pneumophila Ag 09/14/16 09/14/16 09:00 11:39 Sodium Potassium Chloride Carbon Dioxide Anion Gap BUN Creatinine GFR Calculation BUN/Creatinine Ratio Glucose POC Glucose 346 H Calculated Osmolality Calcium TSH, Ultra Sensitive Protein/Creatinin Ratio 1.0 IgG IgG Total IgA IgA Total IgM IgM Total DEBORA Interpretation Hepatitis A IgM Ab Hep Bs Antigen Hep B Core IgM Ab Hepatitis C Antibody Ur L.pneumophila Ag - Diagnostic Findings Procedure: Chest x-ray: image reviewed by me, report reviewed by me (Extensive consolidation in the right mid to lower lung lobes, worse than on admission)
[2016-09-14] MEDS ORDERED: LEVOFLOXACIN INJ 750 MG in PREMIX 1 EACH IV ONE (15:00)
[2016-09-14 16:45] LABS: HIV Antigen/Antibody Result Nonreactive (Nonreactive)
--- NOTE | 2016-09-14 21:30 | Hospitalist Progress Note ---
Assessment and Plan (1) Right middle lobe pneumonia Status: Acute Assessment and plan: Continue antibiotic Current Visit: Yes Qualifiers: Pneumonia type: due to unspecified organism Qualified Code(s): J18.1 - Lobar pneumonia, unspecified organism (2) Acute renal insufficiency Status: Chronic Assessment and plan: Nephrology is following for acute renal failure Current Visit: Yes (3) History of hypertension Status: Chronic Assessment and plan: Controlled hypertension Current Visit: Yes (4) Diabetes Status: Chronic Assessment and plan: This is controlled Current Visit: Yes Qualifiers: Diabetes mellitus type: type 2 Chronic kidney disease stage: stage 4 ( severe) Hospitalist: Subjective Interval history: 35 year old female with the acute onset 5 days ago with aching all over. She was admitted and found to have consolidation of the right middle lobe and partial right lower lobe. She is a former smoker quit 2 years ago. She has diabetes and is been on insulin for a year. Her creatinine was elevated at 5.5 . It appears that she has some chronic renal disease more than she had appreciated. Exam - Constitutional Vitals: Period Temp Pulse Resp BP Sys/Riley Pulse Ox Last 24 Hr 98.3 F-99.6 F 60-106 16-22 110-174/71-98 90-100 Exam: General: [No Acute Distress] HEENT: [Normocephalic, atraumatic, Extra ocular movements intact] Neck: [Supple, No JVD] Chest: [Clear to auscultation B/L] CV: [S1 + S2 audible without murmur, gallop or rub] Abd: [soft, NT, Non-distended, BS +] Ext: [No edema] Skin: [No purpura, bruising or rash] Rheumatologic: [No Joint deformities] Neurologic: [Strengtg 5/5 all extremities, no gross sensory deficits] Results - Labs CBC & BMP: 09/12/16 05:15 09/14/16 07:16 - Impressions Assessment and Plan (1) Right Lung Legionella Pneumonia Status: Acute Assessment and plan: Continue Levaquin Current Visit: Yes Qualifiers: Pneumonia type: due to unspecified organism Qualified Code(s): J18.1 - Lobar pneumonia, unspecified organism (2) Acute renal Failure Status: Chronic Assessment and plan: Cr getting worse slowly. Nephrology is following for acute renal failure Current Visit: Yes (3) History of hypertension Status: Chronic Assessment and plan: Controlled hypertension Current Visit: Yes (4) Diabetes Status: Chronic Assessment and plan: This is controlled Current Visit: Yes Qualifiers: Diabetes mellitus type: type 2 Chronic kidney disease stage: stage 4 ( severe) (5) Acute hypoxemic Resp failure Due to Pneumonia, cont O2
[2016-09-15] MEDS: ALBUTEROL/IPRATROPIUM 3 ML NEB RESP TX SCH ×4 (00:04→20:17)
--- NOTE | 2016-09-15 07:54 | Pulmonology Progress Note ---
Pulmonary - PN: Subj Interval history: The patient is a 35-year-old black lady that is a little overweight and has diabetes. She came in with an extensive right mid lung pneumonia. She has positive Legionella serology. She is getting IV antibiotics. She says she is feeling better with less shortness of breath and fever. Her cough is not too bad. She still has an extensive infiltrate. She does have worsening renal insufficiency. Exam (Progress Note) - Constitutional Vitals: Period Temp Pulse Resp BP Sys/Riley Pulse Ox Last 24 Hr 98.3 F-99.6 F 69-106 15-22 131-174/82-98 90-98 General appearance: no acute distress, over weight - Head Head exam: Present: normal inspection, normocephalic - Eye Eye exam: Present: EOMI. Absent: scleral icterus - ENT ENT exam: Present: normal exam - Neck Neck exam: Present: normal inspection. Absent: lymphadenopathy, thyromegaly - Respiratory Respiratory exam: Present: rales (She does have coarse breath sounds in the right lung.), rhonchi. Absent: accessory muscle use - Cardiovascular Cardiovascular exam: Present: regular rate and rhythm. Absent: gallop, systolic murmur - GI/Abdominal GI/Abdominal exam: Present: normal bowel sounds, soft. Absent: distended, organomegaly, tenderness - Extremities Exam Extremities exam: Absent: calf tenderness, edema - Neurological Exam Neurological exam: Present: alert, oriented X3, CN II-XII intact - Psychiatric Psychiatric exam: Absent: anxious - Skin Skin exam: Present: warm, dry. Absent: rash Results - Labs CBC & BMP: 09/12/16 05:15 09/14/16 07:16 - Diagnostic Findings Procedure: Chest x-ray: image reviewed by me, report reviewed by me (Chest x- ray still shows extensive consolidation in the right midlung.) Assessment and Plan (1) Acute renal insufficiency Status: Chronic Assessment and plan: The patient has worsening renal insufficiency with a creatinine of up to 8.3. She is followed by renal. Current Visit: Yes (2) History of hypertension Status: Chronic Assessment and plan: Her blood pressure and heart rate are stable Current Visit: Yes (3) Diabetes Status: Chronic Assessment and plan: Her glucose is 164 this morning. Current Visit: Yes Qualifiers: Diabetes mellitus type: type 2 Chronic kidney disease stage: stage 4 ( severe) (4) Legionella pneumonia Status: Acute Assessment and plan: She is getting antibiotics for Legionella pneumonia. Clinically she feels like she is doing a little better. Her fever is down and she is not having more shortness of breath at all. Will continue present therapy for now. Current Visit: Yes
[2016-09-15] MEDS: INSULIN REGULAR 100 UNIT/ML SUBCUT SCH ×4 (08:55→21:00)
[2016-09-15] MEDS: ENOXAPARIN 30 MG/0.3 ML SYRINGE SUBCUT SCH (08:55)
[2016-09-15] MEDS: POTASSIUM CHLORIDE 20 MEQ TABLET PO PRN (08:55)
[2016-09-15] MEDS: PANTOPRAZOLE 40 MG TABLET PO SCH (08:55)
[2016-09-15 09:01] LABS: Double Stranded DNA Antibodies < 25.0 IU/ML
[2016-09-15 10:29] LABS: Anti SS-A Antibodies < 16 EU/ML; Anti SS-B Antibodies < 16 EU/ML
--- NOTE | 2016-09-15 11:35 | Infectious Disease Progress ---
Assessment and Plan (1) Legionella pneumonia Status: Acute Assessment and plan: Quite extensive right middle lobe pneumonia and also now right lower lobe seems involved. Patient has diabetes diagnosed less than a year ago and it is possibly uncontrolled which would predispose her to such severe pneumonia however there seems to be something underlying given the severe renal failure and the overall appearance including the hair loss over the past 2 months. So far the autoimmune serologies have come back negative, as has HIV serology. Recommendations: 1. Continue levofloxacin 750 mg daily, since it is reported that levofloxacin might be slightly superior for Legionella pneumonia 2. Follow-up on the results of the renal biopsy which is pending Discussed with stepmother at bedside Current Visit: Yes (2) Right middle lobe pneumonia Status: Acute Assessment and plan: Due to Legionella. Treatment with levofloxacin as above. We will plan to treat patient for at least 2 weeks possibly up to 3 weeks depending on how she does clinically. Current Visit: Yes Qualifiers: Pneumonia type: due to unspecified organism Qualified Code(s): J18.1 - Lobar pneumonia, unspecified organism (3) Acute renal insufficiency Status: Chronic Assessment and plan: Severe renal failure, renal biopsy pending. Current Visit: Yes (4) Diabetes Status: Chronic Current Visit: Yes Qualifiers: Diabetes mellitus type: type 2 Chronic kidney disease stage: stage 4 ( severe) (5) History of hypertension Status: Chronic Current Visit: Yes Infectious Disease - PN: Subj Interval history: Patient is doing okay today, she has not had any recurrence of fever, she has mild cough she says she starting to bring up a little sputum now, no hemoptysis , no pleuritic chest pain. Her appetite is fair. No vomiting or diarrhea. Infectious Disease Exam (PN) - Constitutional Vitals: Temp Pulse Resp BP Pulse Ox 97.6 F 102 H 20 123/66 92 L 09/15/16 07:53 09/15/16 07:53 09/15/16 07:53 09/15/16 07:53 09/15/16 07:53 General appearance: no acute distress, over weight Exam: General appearance: no acute distress, sitting in recliner - Eye Eye exam: Present: EOMI. no icterus Pupils: Present: FARIHA - ENT ENT exam: Scant white exudate to posterior aspect of vehicle mucosa on the right - Respiratory Respiratory exam: Crepitations in right lung field not as harsh as yesterday, no wheezes - Cardiovascular Cardiovascular exam: regular rate and rhythm, no murmurs - GI/Abdominal GI/Abdominal exam: normal bowel sounds, soft, non-tender, no organomegaly or mass - Extremities Exam Extremities exam: Mild bilateral lower extremity edema - Skin Skin exam: no rash Results - Labs CBC & BMP: 09/12/16 05:15 09/14/16 07:16 Lab Results: I have reviewed the past 24 hour labs (HIV serology negative)
--- NOTE | 2016-09-15 12:20 | Nephrology Progress Note ---
Nephrology - PN: Subj Interval history: Ms. Sloan is seen in follow-up of her renal impairment which is progressive. Serologies thus far demonstrated negative JACKY negative double-stranded DNA and negative hepatitis profile. ANCA level is pending. She will have a renal biopsy tomorrow. Currently she is sitting at the bedside in no distress and says her urine volume is a little less than normal. Will check a serum creatinine tomorrow and hopefully her renal biopsy will be helpful. She will continue with Levaquin for her pneumonia. Exam (PN)-Nephrology - Vital Signs Vital signs: Period Temp Pulse Resp BP Sys/Riley Pulse Ox Last 24 Hr 97.6 F-98.7 F 69-105 15-22 123-144/66-89 90-98 - Lab 09/12/16 05:15 09/14/16 07:16 Most recent lab results Calcium 8.2 MG/DL (8.5-10.1) L 09/14/16 07:16 Magnesium 2.4 MG/DL (1.8-2.4) 09/13/16 05:58
[2016-09-15] MEDS ORDERED: FLUCONAZOLE 150 MG TABLET PO ONE (13:00)
[2016-09-15 15:44] LABS: Myeloperoxidase Antibody < 0.2 U
--- NOTE | 2016-09-15 21:35 | Hospitalist Progress Note ---
Assessment and Plan (1) Right middle lobe pneumonia Status: Acute Assessment and plan: Continue antibiotic Current Visit: Yes Qualifiers: Pneumonia type: due to unspecified organism Qualified Code(s): J18.1 - Lobar pneumonia, unspecified organism (2) Acute renal insufficiency Status: Chronic Assessment and plan: Nephrology is following for acute renal failure Current Visit: Yes (3) History of hypertension Status: Chronic Assessment and plan: Controlled hypertension Current Visit: Yes (4) Diabetes Status: Chronic Assessment and plan: This is controlled Current Visit: Yes Qualifiers: Diabetes mellitus type: type 2 Chronic kidney disease stage: stage 4 ( severe) Hospitalist: Subjective Interval history: 35 year old female with the acute onset 5 days ago with aching all over. She was admitted and found to have consolidation of the right middle lobe and partial right lower lobe. She is a former smoker quit 2 years ago. She has diabetes and is been on insulin for a year. Her creatinine was elevated at 5.5 . It appears that she has some chronic renal disease more than she had appreciated. Exam - Constitutional Vitals: Period Temp Pulse Resp BP Sys/Riley Pulse Ox Last 24 Hr 97.6 F-98.7 F 92-104 15-22 123-158/66-94 90-98 Exam: General: [No Acute Distress] HEENT: [Normocephalic, atraumatic, Extra ocular movements intact] Neck: [Supple, No JVD] Chest: [Clear to auscultation B/L] CV: [S1 + S2 audible without murmur, gallop or rub] Abd: [soft, NT, Non-distended, BS +] Ext: [No edema] Skin: [No purpura, bruising or rash] Rheumatologic: [No Joint deformities] Neurologic: [Strengtg 5/5 all extremities, no gross sensory deficits] Results - Labs CBC & BMP: 09/12/16 05:15 09/14/16 07:16 - Impressions Assessment and Plan (1) Right middle lobe pneumonia, Legionella Status: Acute Assessment and plan: Continue antibiotic Current Visit: Yes Qualifiers: Pneumonia type: due to unspecified organism Qualified Code(s): J18.1 - Lobar pneumonia, unspecified organism (2) SEMAJ Status: Chronic Assessment and plan: Nephrology is following for acute renal failure. She is scheduled for a kidney biopsy in the morning due to progressive renal failure Current Visit: Yes (3) History of hypertension Status: Chronic Assessment and plan: Controlled hypertension Current Visit: Yes (4) Diabetes Status: Chronic Assessment and plan: This is controlled Current Visit: Yes Qualifiers: Diabetes mellitus type: type 2 Chronic kidney disease stage: stage 4 ( severe) (5) Acute hypoxemic respiratory failure He is on oxygen by nasal cannula
[2016-09-16 05:35] LABS: Basophils % 0.1 % (0.0-0.8); Eosinophils % 0.1 % (0.00-10.9); Hematocrit 27.2 VOL% (35.7-47.0); Hemoglobin 9.3 GM/DL (12.0-16.0); Immature Granulocytes % 4.2 %; Immature Granulocytes Absolute 0.39 #; Lymphocytes # 0.7 10*3/uL (1.4-4.0); Lymphocytes % 7.7 % (21.3-54.2); Mean Corpuscular HGB Conc 34.2 GM/DL (32-36); Mean Corpuscular Hemoglobin 30 PG (27-34); Mean Corpuscular Volume 86.6 FL (87-102); Mean Platelet Volume 10.2 FL (9.6-12.0); Monocytes # 0.1 10*3/uL (0.11-0.8); Monocytes % 1.3 % (1.7-12.7); Neutrophils % 86.6 % (38.7-73.9); Platelet Count 462 T/CUMM (130-400); Red Blood Count 3.14 MC/CUMM (3.8-5.5); Red Cell Distribution Width 17.3 % (9.3-17.3); White Blood Count 9.3 T/CUMM (4-12)
[2016-09-16 05:57] LABS: Band Neutrophils 3 % (0-10); Lymphocytes 7 % (20-55); Metamyelocytes 2 %; Segmented Neutrophils 87 % (50-85); Total Cells Counted 100
[2016-09-16 05:58] LABS: Hypochromasia 1+; Microcytosis 1+; Spherocytes Few
[2016-09-16 06:17] LABS: Albumin 1.7 G/DL (3.4-5.0); Bilirubin,Total 0.4 MG/DL (0.2-1.0); Calcium 8.2 MG/DL (8.5-10.1); Osmolality,Calculated 306.8 MOS/KG (273-304); Potassium 3.4 MMOL/L (3.5-5.1); Total Protein 6.4 G/DL (6.4-8.3)
[2016-09-16] MEDS: ALBUTEROL/IPRATROPIUM 3 ML NEB RESP TX SCH ×4 (07:40→19:17)
--- NOTE | 2016-09-16 08:03 | Inventional Radiology Consult ---
Assessment and Plan - Time spent with patient Time spent with patient: Less than 30 minutes (1) Acute renal insufficiency Problem details: renal function is not improving and there is concerning for underlying pathology that is undiagnosed at this point Status: Chronic Assessment and plan: plan for renal biopsy Current Visit: Yes IR Consult - Data of Consult Patient: new to practice Consult date: 09/16/16 Requesting Physician: David Dong - Consult Narrative Reason for consult: chronic renal failure History of present illness: Sam is a 35 year old F Admitted with shortness of breath, pneumonia and elevated BUNs/creatinine. History of chronic renal failure although previously untreated and of unknown cause. Additional medical history includes diabetes and obesity. No history of heart attack. No nausea vomiting diarrhea. No hematuria. - Home Medications and Allergies Home Medications: Home Medications Medication Instructions Recorded Confirmed Type Atenolol 50 mg PO DAILY 09/11/16 09/12/16 History Chlorthalidone 25 mg PO DAILY 09/11/16 09/12/16 History Insulin Degludec [Tresiba 40 unit SUBCUT QAM 09/11/16 09/12/16 History Flextouch U-100] Lisinopril 20 mg PO DAILY 09/11/16 09/12/16 History Losartan Potassium 100 mg PO DAILY 09/11/16 09/12/16 History Metformin HCl 1,000 mg PO BID 09/11/16 09/12/16 History Allergies/Adverse Reactions: Allergies Allergy/AdvReac Type Severity Reaction Status Date / Time No Known Allergies Allergy Unverified 09/11/16 19:20 12 point system: reviewed and no additional remarkable complaints except as stated Medical,Surgical,& Family Hx - Medical History Cardio: History of: Hypertension Psychological: History of: Anxiety Disorders, Depression (SINCE DIAGNOSED DIABETES NOV 2015) HEENT: History of: HEENT Problems (NASAL DRAINAGE X 2 WEEKS) Endocrine: History of: Diabetes Mellitus (IDDM) Gastrointestinal: History of: GI Problems (nausea,diarrhea presently x 2 days) Reproductive: History of: Complication (MISCARRIAGE X 1 (2 LIVE ) ), Reproductive Problems (LMP SEP 2015) - Surgical History HEENT Surgeries: Patient denies: Eye Surgery, Tonsilectomy & Adenoidectomy Reproductive Surgeries: Surgical HX of;: Dilation and Curettage, Gynecologic Surgery - Family History Family History: Reports;: Family Cancer (DAD(PROSTATE) PAT GM (KIDNEY)), Family Diabetes (MAT AUNT,PAT GREAT AUNT), Family Heart Disease, Family Hematology ( PAT COUSINS (LUPUS,SS ANEMIA)), Family Hypertension (PAT GM,PAT UNCLES X 3), Family Stroke (PAT COUSIN) Denies;: Family Anesthesia Reaction, Family Psychiatric Problems, Additional Family History - Social History Smoking Status: Never smoker Frequency of Alcohol Use: None Type of Drug Use: None Exam - Labs CBC & BMP: 09/16/16 04:48 09/16/16 04:48 Lab Results: I have reviewed the past 24 hour labs Labs: INR 1.2 09/11/16 21:30 - Constitutional Vitals: Period Temp Pulse Resp BP Sys/Riley Pulse Ox Last 24 Hr 96.1 F-98.2 F 71-103 18-22 139-166/84-101 90-98 General appearance: over weight, morbidly obese - Eye Eye exam: Present: EOMI - Respiratory Respiratory exam: Present: clear to auscultation bilaterally - Cardiovascular Cardiovascular exam: Present: regular rate and rhythm - GI/Abdominal GI/Abdominal exam: Present: normal bowel sounds - Back Exam Back exam: Absent: CVA tenderness (L), CVA tenderness (R) - Neurological Exam Neurological exam: Present: alert, oriented X3 - Psychiatric Psychiatric exam: Present: normal affect, normal mood - Skin Skin exam: Present: normal color, dry
[2016-09-16] MEDS ORDERED: DIAZEPAM 5 MG TABLET PO ONE (08:04)
[2016-09-16] MEDS ORDERED: LEVOFLOXACIN INJ 500 MG in PREMIX 1 EACH IV SCH (09:00)
[2016-09-16] MEDS: INSULIN REGULAR 100 UNIT/ML SUBCUT SCH ×4 (09:22→21:49)
[2016-09-16] MEDS: ENOXAPARIN 30 MG/0.3 ML SYRINGE SUBCUT SCH (09:23)
[2016-09-16 10:02] LABS: Collection Time,Urine 24 HOURS; Total Volume,Urine 975 ML (400-2000)
[2016-09-16 10:11] LABS: Total Protein 24 Hr Ur Result 1092 MG/24HR (0-149.1)
[2016-09-16] MEDS: PANTOPRAZOLE 40 MG TABLET PO SCH ×2 (11:00→13:46)
--- NOTE | 2016-09-16 11:07 | Post Interventional Procedure ---
Pre-op diagnosis: chronic kidney failure Post-op diagnosis: same Procedure: CT guided random renal biopsy Contrast: none Flouroscopy: none Radiologist: Frankie Gilliland Anesthesia: local Specimens: other (4 cores obtained and sent for renal specific analysis) Estimated blood loss: minimal Complications: none Condition: stable Description/Findings: biopsy done at inferior pole of left kidney with small perirenal hematoma noted at conclusion. Will monitor clinically. Patient otherwise tolerated well Assessment and Plan - Time spent with patient Time spent with patient: Less than 30 minutes (1) Acute renal insufficiency Problem details: renal function is not improving and there is concerning for underlying pathology that is undiagnosed at this point Status: Chronic Assessment and plan: plan for renal biopsy Current Visit: Yes
--- NOTE | 2016-09-16 11:12 | CT Report ---
CT biopsy renal LT Clinical Information: Worsening renal function of unknown cause Physician: Dr. Gilliland Technique: Informed consent was obtained from the patient. Full explanation of the nature of the procedure, alternatives and risks were discussed, including risks of bleeding, infection and potential inability to diagnose with needle technique. Adjacent vascular and organ injury were also fully discussed. She expressed understanding and a desire to proceed. Formal timeouts were performed, per protocol. Local anesthesia only was used for the procedure. Left kidney inferior pole was targeted for biopsy. CT guided localization of the inferior pole left kidney was performed. Under real time guidance, 4 total core biopsies were obtained using a 20-gauge system and submitted as required for renal specific pathologic analysis. Follow-up imaging demonstrated no evidence of pneumothorax. There is a small perinephric hemorrhage noted. A 5 min delayed scan shows minimal change in the perinephric hematoma, which hopefully will spontaneously resolved. Estimated blood loss less than 5 cc. Total number of images for this study: 168 Conclusion: Technically successful CT guided random renal biopsy as detailed above. PROCEDURE INTERPRETED AT [facility] DEPARTMENT OF RADIOLOGY Final Report Signed by: Frankie Gilliland
[2016-09-16 12:01] LABS: 24 Hr Protein (Bench) 1092 MG/24HR (0-149.1)
--- NOTE | 2016-09-16 12:01 | Pulmonology Progress Note ---
Pulmonary - PN: Subj Interval history: The patient is a 35-year-old black lady that is a little overweight and has diabetes. She came in with an extensive right mid lung pneumonia. She has positive Legionella serology. She is getting IV antibiotics. She says she feels much better today and her shortness of breath is improved. She is not coughing up much sputum. She has not had any further fever. She says she is tolerating medications okay. Overall she is feeling a little better. She is going for a renal biopsy today. Exam (Progress Note) - Constitutional Vitals: Period Temp Pulse Resp BP Sys/Riley Pulse Ox Last 24 Hr 96.1 F-98.2 F 71-103 15-22 111-166/80-101 90-100 Exam: General appearance: no acute distress, over weight, she is sitting up in the bed without oxygen and is in no distress. - Head Head exam: Present: normal inspection, normocephalic - Eye Eye exam: Present: EOMI. Absent: scleral icterus - ENT ENT exam: Present: normal exam - Neck Neck exam: Present: normal inspection. Absent: lymphadenopathy, thyromegaly - Respiratory Respiratory exam: Present: She has slightly diminished breath sounds on the right with some minimal crackles. Her left lung is clear. - Cardiovascular Cardiovascular exam: Present: regular rate and rhythm. Absent: gallop, systolic murmur - GI/Abdominal GI/Abdominal exam: Present: normal bowel sounds, soft. Absent: distended, organomegaly, tenderness - Extremities Exam Extremities exam: Absent: calf tenderness, edema - Neurological Exam Neurological exam: Present: alert, oriented X3, CN II-XII intact - Psychiatric Psychiatric exam: Absent: anxious - Skin Skin exam: Present: warm, dry. Absent: rash Results - Labs CBC & BMP: 09/16/16 04:48 09/16/16 04:48 Assessment and Plan (1) Acute renal insufficiency Problem details: renal function is not improving and there is concerning for underlying pathology that is undiagnosed at this point Status: Chronic Assessment and plan: The patient has worsening renal insufficiency with a creatinine of 7.0 now. She is going for a kidney biopsy today. Current Visit: Yes (2) History of hypertension Status: Chronic Assessment and plan: Her blood pressure and heart rate are stable. She appears to be hemodynamically stable. Current Visit: Yes (3) Diabetes Status: Chronic Assessment and plan: Her glucose is 288 this morning. Current Visit: Yes Qualifiers: Diabetes mellitus type: type 2 Chronic kidney disease stage: stage 4 ( severe) (4) Legionella pneumonia Status: Acute Assessment and plan: She is getting antibiotics for Legionella pneumonia. Clinically she feels like she is doing a little better. Her fever is down and she is not having more shortness of breath at all. At present she looks like she is improving and will continue present antibiotics. Her respiratory status is stable. Current Visit: Yes
--- NOTE | 2016-09-16 13:03 | Nephrology Progress Note ---
Nephrology - PN: Subj Interval history: Ms. Sloan underwent renal biopsy today. She is tolerated that well and her blood pressure stable. She is in no distress is quite comfortable. It is very encouraging that her creatinine is fallen today down to 7.0. We will await her renal biopsy and hopefully will get some preliminary information as early as tomorrow evening. She has no edema she is not short of breath blood pressure 150/100 now. We will continue to follow her renal function. Exam (PN)-Nephrology - Vital Signs Vital signs: Period Temp Pulse Resp BP Sys/Riley Pulse Ox Last 24 Hr 96.1 F-98.2 F 71-103 15-22 111-166/80-108 90-100 - Lab 09/16/16 04:48 09/16/16 04:48 Most recent lab results Calcium 8.2 MG/DL (8.5-10.1) L 09/16/16 04:48 Magnesium 2.4 MG/DL (1.8-2.4) 09/13/16 05:58 Ur Total Protein 24 Hr 1092 MG/24HR (0-149.1) H 09/14/16 07:16
[2016-09-16] MEDS: amLODIPine 5 MG TABLET PO SCH (13:44)
[2016-09-16] MEDS: ATENOLOL 50 MG TABLET PO SCH (13:45)
--- NOTE | 2016-09-16 16:03 | Hospitalist Progress Note ---
Assessment and Plan (1) Accelerated hypertension with diastolic congestive heart failure, NYHA class 3 Status: Acute Assessment and plan: Patient is put on amlodipine and resumed atenolol. Withhold losartan and lisinopril. Repeat a BMP and magnesium tomorrow Current Visit: Yes (2) Accelerated hypertension Status: Acute Current Visit: Yes (3) Right middle lobe pneumonia Status: Acute Assessment and plan: Discontinue levofloxacin. Start her on azithromycin 500 mg daily for 4 doses and ceftriaxone 2 g IV every day Current Visit: Yes Qualifiers: Pneumonia type: due to unspecified organism Qualified Code(s): J18.1 - Lobar pneumonia, unspecified organism (4) Acute renal insufficiency Problem details: renal function is not improving and there is concerning for underlying pathology that is undiagnosed at this point Status: Chronic Assessment and plan: As mentioned above patient has had a biopsy. Withhold TRACI inhibitors and angiotensin receptor blockers. Hydrate the patient will. Avoid any renal toxic medication that can be avoided. Current Visit: Yes (5) Diabetes Status: Chronic Current Visit: Yes Qualifiers: Diabetes mellitus type: type 2 Chronic kidney disease stage: stage 4 ( severe) Hospitalist: Subjective Interval history: Patient has been seen interviewed and examined and chart has been reviewed. She is seen soon after coming back from biopsy of a kidney. Sedated admitted to the hospital with a precipitous loss of kidney function and noticed that she was on both losartan and lisinopril at home. There is possibility that she was also dehydrated. The best of our suggestion would be that this is a drug side effect and that can get better with withholding of the TRACI inhibitor and angiotensin is a. Hydrate the patient. Patient is a high again I will put her on her atenolol and start her on amlodipine. I discussed with the family the mother and the patient regarding what to do with it at this point. They are understanding. She has papers from her workplace to be sure that time. I am willing to sign them tomorrow. The family member (mother) also has FMLA forms to be signed which she will bring tomorrow. Exam - Constitutional Vitals: Period Temp Pulse Resp BP Sys/Riley Pulse Ox Last 24 Hr 96.1 F-98.2 F 71-103 15-22 111-166/80-108 90-100 General appearance: normal weight, other (Receding hair) - Head Head exam: Present: normal inspection, normocephalic - Eye Eye exam: Present: EOMI Pupils: Present: FARIHA - ENT ENT exam: Present: normal oropharynx - Respiratory Respiratory exam: Present: clear to auscultation bilaterally - Cardiovascular Cardiovascular exam: Present: regular rate and rhythm - GI/Abdominal GI/Abdominal exam: Present: normal bowel sounds, soft - Extremities Exam Extremities exam: Present: full ROM - Back Exam Back exam: Present: normal inspection - Neurological Exam Neurological exam: Present: alert, oriented X3, CN II-XII intact - Psychiatric Psychiatric exam: Present: normal affect, normal mood - Skin Skin exam: Present: normal color, warm, dry Results - Labs CBC & BMP: 09/16/16 04:48 09/16/16 04:48 Lab Results: I have reviewed the past 24 hour labs
--- NOTE | 2016-09-16 16:14 | Infectious Disease Progress ---
Assessment and Plan (1) Legionella pneumonia Status: Acute Assessment and plan: Severe pneumonia involving right lung, predominantly middle lobe. Patient clinically improving. Recommendations: Continue levofloxacin Current Visit: Yes (2) Right middle lobe pneumonia Status: Acute Assessment and plan: Due to Legionella. Treatment with levofloxacin as above. We will plan to treat patient for at least 2 weeks possibly up to 3 weeks depending on how she does clinically. Current Visit: Yes Qualifiers: Pneumonia type: due to unspecified organism Qualified Code(s): J18.1 - Lobar pneumonia, unspecified organism (3) Acute renal insufficiency Problem details: renal function is not improving and there is concerning for underlying pathology that is undiagnosed at this point Status: Chronic Assessment and plan: Severe renal failure, renal biopsy pending. Current Visit: Yes (4) Diabetes Status: Chronic Current Visit: Yes Qualifiers: Diabetes mellitus type: type 2 Chronic kidney disease stage: stage 4 ( severe) (5) History of hypertension Status: Chronic Current Visit: Yes Infectious Disease - PN: Subj Interval history: Patient doing okay today she has had no fever, coughing a bit with some modest sputum production. Had kidney biopsy today. Infectious Disease Exam (PN) - Constitutional Vitals: Temp Pulse Resp BP Pulse Ox 97.9 F 78 20 152/102 92 L 09/16/16 16:00 09/16/16 16:00 09/16/16 16:00 09/16/16 16:00 09/16/16 16:00 General appearance: normal weight, other (Receding hair) Exam: General appearance: no acute distress - Eye Eye exam: Present: EOMI. no icterus Pupils: Present: FARIHA - ENT ENT exam: Without buccal exudates scant white exudate to posterior aspect of vehicle mucosa on the right - Respiratory Respiratory exam: Faint crepitations in right lung field, no wheezes - Cardiovascular Cardiovascular exam: regular rate and rhythm, no murmurs - GI/Abdominal GI/Abdominal exam: normal bowel sounds, soft, non-tender, no organomegaly or mass - Extremities Exam Extremities exam: Mild bilateral lower extremity edema - Skin Skin exam: no rash, multiple stretch villanueva/striae over upper limbs and trunk, severe and abdomen Results - Labs CBC & BMP: 09/16/16 04:48 09/16/16 04:48 Lab Results: I have reviewed the past 24 hour labs
[2016-09-16] MEDS: AZITHROMYCIN INJ 500 MG in SODIUM CHLORIDE 0.9% 250 ML IV SCH (16:51)
[2016-09-16] MEDS: INSULIN GLARGINE 100 UNIT/ML SUBCUT SCH (21:50)
[2016-09-16] MEDS: cefTRIAXone 2,000 MG in SODIUM CHLORIDE 0.9% 100 ML IV SCH (21:52)
[2016-09-17] MEDS: ALBUTEROL/IPRATROPIUM 3 ML NEB RESP TX SCH ×4 (00:16→19:02)
[2016-09-17 05:22] LABS: Calcium 8.1 MG/DL (8.5-10.1); Osmolality,Calculated 308.8 MOS/KG (273-304); Potassium 3.2 MMOL/L (3.5-5.1)
[2016-09-17] MEDS: INSULIN REGULAR 100 UNIT/ML SUBCUT SCH ×4 (08:18→21:14)
[2016-09-17] MEDS: amLODIPine 5 MG TABLET PO SCH (08:22)
[2016-09-17] MEDS: ATENOLOL 50 MG TABLET PO SCH (08:22)
[2016-09-17] MEDS: PANTOPRAZOLE 40 MG TABLET PO SCH (08:22)
[2016-09-17] MEDS: ENOXAPARIN 30 MG/0.3 ML SYRINGE SUBCUT SCH (08:22)
[2016-09-17 09:33] LABS: Albumin (UPE) Rel % 42.4 %; Alpha 1 (UPE) 210.8 MG/24H; Alpha 1 (UPE) Rel % 19.3 %; Alpha 2 (UPE) 220.6 MG/24H; Alpha 2 (UPE) Rel % 20.2 %; Beta (UPE) 151.8 MG/24H
[2016-09-17 09:34] LABS: Beta (UPE) Rel % 13.9 %; Gamma (UPE) 45.9 MG/24H; Gamma (UPE) Rel % 4.2 %
--- NOTE | 2016-09-17 09:49 | Nephrology Progress Note ---
Nephrology - PN: Subj Interval history: Ms. Villa is seen in follow-up of her acute renal failure in the presence of Legionella pneumonia. Her creatinine is down again today to 5.5 and blood pressure is improved with start of atenolol and Norvasc yesterday. We will await her biopsy report which likely will be back on Tuesday. All serologies have been negative including JACKY and ANCA. She continues her antibiotic therapy for her pneumonia. Exam (PN)-Nephrology - Vital Signs Vital signs: Period Temp Pulse Resp BP Sys/Riley Pulse Ox Last 24 Hr 97.2 F-98.7 F 70-100 - 111-173/80-108 90-100 - Lab 09/16/16 04:48 09/17/16 03:33 Most recent lab results Calcium 8.1 MG/DL (8.5-10.1) L 09/17/16 03:33 Magnesium 2.4 MG/DL (1.8-2.4) 09/13/16 05:58 Ur Total Protein 24 Hr 1092 MG/24HR (0-149.1) H 09/14/16 07:16
--- NOTE | 2016-09-17 10:57 | Pulmonology Progress Note ---
Pulmonary - PN: Subj Interval history: The patient is a 35-year-old black lady that is a little overweight and has diabetes. She came in with an extensive right mid lung pneumonia. She has positive Legionella serology. She is getting IV antibiotics. She has had renal insufficiency and got a renal biopsy yesterday. She says her urine is clearing fairly well and her creatinine is coming down. She feels like she is breathing okay and not having any fever. Her shortness of breath is better. Overall she seems to be improving Exam (Progress Note) - Constitutional Vitals: Period Temp Pulse Resp BP Sys/Riley Pulse Ox Last 24 Hr 97.2 F-98.7 F 70-94 16-20 124-173/80-108 90-99 Exam: General appearance: no acute distress, over weight, she is resting comfortably in bed and looks about the same. - Head Head exam: Present: normal inspection, normocephalic - Eye Eye exam: Present: EOMI. Absent: scleral icterus - ENT ENT exam: Present: normal exam - Neck Neck exam: Present: normal inspection. Absent: lymphadenopathy, thyromegaly - Respiratory Respiratory exam: Present: She has slightly diminished breath sounds on the right with some minimal crackles. Her left lung is clear. - Cardiovascular Cardiovascular exam: Present: regular rate and rhythm. Absent: gallop, systolic murmur - GI/Abdominal GI/Abdominal exam: Present: normal bowel sounds, soft. Absent: distended, organomegaly, tenderness - Extremities Exam Extremities exam: Absent: calf tenderness, edema - Neurological Exam Neurological exam: Present: alert, oriented X3, CN II-XII intact - Psychiatric Psychiatric exam: Absent: anxious - Skin Skin exam: Present: warm, dry. Absent: rash Results - Labs CBC & BMP: 09/16/16 04:48 09/17/16 03:33 Assessment and Plan (1) Acute renal insufficiency Problem details: renal function is not improving and there is concerning for underlying pathology that is undiagnosed at this point Status: Chronic Assessment and plan: The patient is having better renal function and her creatinine is down to 5.5. Current Visit: Yes (2) History of hypertension Status: Chronic Assessment and plan: Her blood pressure and heart rate are stable. She appears to be hemodynamically stable. Current Visit: Yes (3) Diabetes Status: Chronic Assessment and plan: Her glucose is 292 this morning. Current Visit: Yes Qualifiers: Diabetes mellitus type: type 2 Chronic kidney disease stage: stage 4 ( severe) (4) Legionella pneumonia Status: Acute Assessment and plan: She is getting antibiotics for Legionella pneumonia. Clinically she feels like she is doing a little better. Her fever is down and she is not having more shortness of breath at all. Her shortness of breath continues to improve. Overall she is stable. Current Visit: Yes
--- NOTE | 2016-09-17 11:24 | Infectious Disease Progress ---
Assessment and Plan (1) Legionella pneumonia Status: Acute Assessment and plan: Severe pneumonia involving right lung, predominantly middle lobe. Patient clinically improving. Recommendations: I was about to switch the patient from IV Levaquin to oral Levaquin but I see that actually yesterday she was put back on ceftriaxone and azithromycin. Discussed with Dr. Canseco and he had concerns about her being on Levaquin with her kidney failure. He wants to also have her covered in case there is something else like Streptococcus pneumoniae or other organism hence the resumption of ceftriaxone. Patient will continue the antibiotics for at least another week. I will sign off now. Call again as needed. Current Visit: Yes (2) Right middle lobe pneumonia Status: Acute Assessment and plan: Due to Legionella. Treatment as above. Recommend treatment for at least 2 weeks possibly up to 3 weeks depending on how she does clinically. Current Visit: Yes Qualifiers: Pneumonia type: due to unspecified organism Qualified Code(s): J18.1 - Lobar pneumonia, unspecified organism (3) Acute renal insufficiency Problem details: renal function is not improving and there is concerning for underlying pathology that is undiagnosed at this point Status: Chronic Assessment and plan: Severe renal failure, renal biopsy pending. Renal function has improved a bit since admission Current Visit: Yes (4) Diabetes Status: Chronic Current Visit: Yes Qualifiers: Diabetes mellitus type: type 2 Chronic kidney disease stage: stage 4 ( severe) (5) History of hypertension Status: Chronic Current Visit: Yes Infectious Disease - PN: Subj Interval history: Patient doing well she is steadily improving every day, no fever, she has a mild cough but really not able to get up anything, no pleuritic chest pain. Her appetite is pretty okay no vomiting no diarrhea. Infectious Disease Exam (PN) - Constitutional Vitals: Temp Pulse Resp BP Pulse Ox 97.3 F L 72 20 143/89 94 L 09/17/16 08:00 09/17/16 08:00 09/17/16 08:00 09/17/16 08:00 09/17/16 08:00 General appearance: normal weight, other (Receding hair) Exam: General appearance: no acute distress, sitting in chair - Eye Eye exam: Present: EOMI. no icterus Pupils: Present: FARIHA - ENT ENT exam: No oral exudates - Respiratory Respiratory exam: Fine crepitations in right lung field, no wheezes - Cardiovascular Cardiovascular exam: regular rate and rhythm, no murmurs - GI/Abdominal GI/Abdominal exam: normal bowel sounds, soft, non-tender, no organomegaly or mass - Extremities Exam Extremities exam: Mild bilateral lower extremity edema - Skin Skin exam: no rash, multiple stretch villanueva/striae over upper limbs and trunk, severe and abdomen Results - Labs CBC & BMP: 09/16/16 04:48 09/17/16 03:33 Lab Results: I have reviewed the past 24 hour labs
--- NOTE | 2016-09-17 14:52 | Hospitalist Progress Note ---
Assessment and Plan (1) Accelerated hypertension with diastolic congestive heart failure, NYHA class 3 Status: Acute Assessment and plan: Patient is put on amlodipine and resumed atenolol. Withhold losartan and lisinopril. Repeat a BMP and magnesium tomorrow Current Visit: Yes (2) Accelerated hypertension Status: Acute Current Visit: Yes (3) Right middle lobe pneumonia Status: Acute Assessment and plan: Discontinue levofloxacin. Start her on azithromycin 500 mg daily for 4 doses and ceftriaxone 2 g IV every day Current Visit: Yes Qualifiers: Pneumonia type: due to unspecified organism Qualified Code(s): J18.1 - Lobar pneumonia, unspecified organism (4) Acute renal insufficiency Problem details: renal function is not improving and there is concerning for underlying pathology that is undiagnosed at this point Status: Chronic Assessment and plan: As mentioned above patient has had a biopsy. Withholding TRACI inhibitors and angiotensin receptor blockers. Hydrate the patient will. Avoid any renal toxic medication that can be avoided. Current Visit: Yes (5) Diabetes Status: Chronic Current Visit: Yes Qualifiers: Diabetes mellitus type: type 2 Chronic kidney disease stage: stage 4 ( severe) Hospitalist: Subjective Interval history: Patient has been seen interviewed and examined and chart has been reviewed. Admitted to the hospital with precipitous renal failure. Creatinine is improved 75.5 today. She was admitted here with a creatinine of 7.6. BUN is 73 which is also lower than yesterday. She has a low potassium to 3.2 magnesium was 2.0. We will give potassium chloride this 40 mEq p.o. 1. Exam - Constitutional Vitals: Period Temp Pulse Resp BP Sys/Riley Pulse Ox Last 24 Hr 97.2 F-98.7 F 70-91 17-20 124-173/80-107 90-99 General appearance: over weight - Head Head exam: Present: normocephalic, atraumatic - Eye Eye exam: Present: EOMI Pupils: Present: FARIHA - ENT ENT exam: Present: normal exam, normal oropharynx - Respiratory Respiratory exam: Present: clear to auscultation bilaterally - Cardiovascular Cardiovascular exam: Present: regular rate and rhythm - GI/Abdominal GI/Abdominal exam: Present: normal bowel sounds, soft - Extremities Exam Extremities exam: Present: full ROM - Neurological Exam Neurological exam: Present: alert, oriented X3, CN II-XII intact - Psychiatric Psychiatric exam: Present: normal affect, normal mood - Skin Skin exam: Present: normal color, warm, dry Results - Labs CBC & BMP: 09/16/16 04:48 09/17/16 03:33 Lab Results: I have reviewed the past 24 hour labs (Noted hypokalemia)
[2016-09-17] MEDS ORDERED: POTASSIUM CHLORIDE 20 MEQ TABLET PO ONE (14:53)
[2016-09-17] MEDS: AZITHROMYCIN INJ 500 MG in SODIUM CHLORIDE 0.9% 250 ML IV SCH (16:02)
[2016-09-17] MEDS: cefTRIAXone 2,000 MG in SODIUM CHLORIDE 0.9% 100 ML IV SCH (21:11)
[2016-09-17] MEDS: INSULIN GLARGINE 100 UNIT/ML SUBCUT SCH (21:12)
[2016-09-18] MEDS: ALBUTEROL/IPRATROPIUM 3 ML NEB RESP TX SCH ×4 (00:06→19:22)
[2016-09-18 07:37] LABS: Calcium 8.4 MG/DL (8.5-10.1); Osmolality,Calculated 310.8 MOS/KG (273-304); Potassium 3.4 MMOL/L (3.5-5.1)
[2016-09-18] MEDS: INSULIN REGULAR 100 UNIT/ML SUBCUT SCH ×4 (08:15→21:22)
[2016-09-18] MEDS: PANTOPRAZOLE 40 MG TABLET PO SCH (08:17)
[2016-09-18] MEDS: ATENOLOL 50 MG TABLET PO SCH (08:17)
[2016-09-18] MEDS: amLODIPine 5 MG TABLET PO SCH (08:17)
[2016-09-18] MEDS: ENOXAPARIN 30 MG/0.3 ML SYRINGE SUBCUT SCH (08:18)
--- NOTE | 2016-09-18 09:41 | Pulmonology Progress Note ---
Pulmonary - PN: Subj Interval history: The patient is a 35-year-old black lady that is a little overweight and has diabetes. She came in with an extensive right mid lung pneumonia. She has positive Legionella serology. She is getting IV antibiotics. She has had renal insufficiency and got a renal biopsy yesterday. She says her urine is clearing fairly well and her creatinine is coming down. She is not coughing up much sputum and she says her breathing is better. She certainly does not appear toxic now. Will check a chest x-ray tomorrow. Exam (Progress Note) - Constitutional Vitals: Period Temp Pulse Resp BP Sys/Riley Pulse Ox Last 24 Hr 96.6 F-98.3 F 67-94 16-20 126-165/80-105 93-99 Exam: General appearance: no acute distress, over weight, she is resting comfortably in bed and looks about the same. She is in no distress now. - Head Head exam: Present: normal inspection, normocephalic - Eye Eye exam: Present: EOMI. Absent: scleral icterus - ENT ENT exam: Present: normal exam - Neck Neck exam: Present: normal inspection. Absent: lymphadenopathy, thyromegaly - Respiratory Respiratory exam: Present: She has slightly diminished breath sounds on the right with some minimal crackles. Her left lung is clear. Her right lung does sound better today. - Cardiovascular Cardiovascular exam: Present: regular rate and rhythm. Absent: gallop, systolic murmur - GI/Abdominal GI/Abdominal exam: Present: normal bowel sounds, soft. Absent: distended, organomegaly, tenderness - Extremities Exam Extremities exam: Absent: calf tenderness, edema - Neurological Exam Neurological exam: Present: alert, oriented X3, CN II-XII intact - Psychiatric Psychiatric exam: Absent: anxious - Skin Skin exam: Present: warm, dry. Absent: rash Results - Labs CBC & BMP: 09/16/16 04:48 09/18/16 05:32 Assessment and Plan (1) Acute renal insufficiency Problem details: renal function is not improving and there is concerning for underlying pathology that is undiagnosed at this point Status: Chronic Assessment and plan: The patient is having better renal function and her creatinine is down to 3.8. Current Visit: Yes (2) History of hypertension Status: Chronic Assessment and plan: Her blood pressure and heart rate are stable. She appears to be hemodynamically stable. Current Visit: Yes (3) Diabetes Status: Chronic Assessment and plan: Her glucose is 180 this morning. Current Visit: Yes Qualifiers: Diabetes mellitus type: type 2 Chronic kidney disease stage: stage 4 ( severe) (4) Legionella pneumonia Status: Acute Assessment and plan: She is getting antibiotics for Legionella pneumonia. Clinically she feels like she is doing a little better. Her fever is down and she is not having more shortness of breath at all. Her shortness of breath continues to improve. Will check a chest x-ray tomorrow. Current Visit: Yes
--- NOTE | 2016-09-18 11:53 | Nephrology Progress Note ---
Nephrology - PN: Subj Interval history: Pt states she feels better. Asks if she can go home. Relayed renal biopsy results--> ATN with some IgA deposition c/w systemic infection. Coughing up red/ brown sputum. Exam (PN)-Nephrology - Vital Signs Vital signs: Period Temp Pulse Resp BP Sys/Riley Pulse Ox Last 24 Hr 96.6 F-98.3 F 67-94 16-20 126-165/80-105 93-100 - General Appearance General appearance: well-developed, obese EENT: ATNC, PERRL, mucous membranes moist, hearing intact, vision intact Neck: no JVD, no thyromegaly Respiratory: no kyphosis, clear Cardiology: no murmurs, no rub Gastrointestinal: normoactive bowel sounds, no tenderness Integumentary: no rash, warm and dry Neurologic: no focal deficit, no asterixis, alert and oriented x3 Musculoskeletal: no deformities, no erythema Psychiatric: mood/affect appropriate, cooperative - Lab 09/16/16 04:48 09/18/16 05:32 Most recent lab results Calcium 8.4 MG/DL (8.5-10.1) L 09/18/16 05:32 Magnesium 1.9 MG/DL (1.8-2.4) 09/18/16 05:28 Ur Total Protein 24 Hr 1092 MG/24HR (0-149.1) H 09/14/16 07:16 Assessment and Plan (1) SEMAJ (acute kidney injury) Problem details: secondary to biopsy proven acute tubular necrosis (ATN). Resolving rapidly. Status: Acute Assessment and plan: At risk for repeat ATN in recovery period (~14days). Avoid nephrotoxins, hypotension. Renally dose all meds for eGFR 20cc/min, Creatinine 3.8 from 5.5 yesterday. Current Visit: Yes
[2016-09-18] MEDS ORDERED: amLODIPine 5 MG TABLET PO ONE (11:59)
--- NOTE | 2016-09-18 12:05 | Hospitalist Progress Note ---
Assessment and Plan (1) Accelerated hypertension with diastolic congestive heart failure, NYHA class 3 Status: Acute Assessment and plan: Patient is put on amlodipine 10 mg daily and resumed atenolol 50 mg daily. Withholding losartan and lisinopril. Repeat a BMP and magnesium tomorrow Current Visit: Yes (2) Accelerated hypertension Status: Acute Assessment and plan: Raise the antihypertensive as mentioned above Current Visit: Yes (3) Right middle lobe pneumonia Status: Acute Assessment and plan: Discontinue levofloxacin. Start her on azithromycin 500 mg daily for 4 doses and ceftriaxone 2 g IV every day Current Visit: Yes Qualifiers: Pneumonia type: due to unspecified organism Qualified Code(s): J18.1 - Lobar pneumonia, unspecified organism (4) Acute renal insufficiency Problem details: renal function is not improving and there is concerning for underlying pathology that is undiagnosed at this point Status: Chronic Assessment and plan: Continues to improve on current management. Would patient on some half normal saline 75 mL/h encourage intravascular volume increment and improve on nephron pressures Current Visit: Yes (5) Diabetes Status: Chronic Current Visit: Yes Qualifiers: Diabetes mellitus type: type 2 Chronic kidney disease stage: stage 4 ( severe) Hospitalist: Subjective Interval history: Patient has been seen interviewed and examined and chart has been reviewed. She is offering no new complaints. Her serum creatinine has significantly improved to 3.8 this morning. BUN is 68 She is noted to have accelerated hypertension again will raise the amlodipine to 10 mg daily atenolol his affect with a heart rate is now in the 50s 60s of note increase his atenolol. May need diuretic on top of what she has been given however with the current azotemia I do not want to worsen azotemia with dehydration. Exam - Constitutional Vitals: Period Temp Pulse Resp BP Sys/Riley Pulse Ox Last 24 Hr 96.6 F-97.7 F 67-94 16-20 126-165/81-105 93-100 General appearance: over weight - Head Head exam: Present: normocephalic, atraumatic - Eye Eye exam: Present: EOMI Pupils: Present: FARIHA - ENT ENT exam: Present: normal exam - Neck Neck exam: Present: normal inspection - Respiratory Respiratory exam: Present: clear to auscultation bilaterally - Cardiovascular Cardiovascular exam: Present: regular rate and rhythm - GI/Abdominal GI/Abdominal exam: Present: normal bowel sounds, soft - Extremities Exam Extremities exam: Present: full ROM - Neurological Exam Neurological exam: Present: alert, oriented X3, CN II-XII intact - Psychiatric Psychiatric exam: Present: normal affect, normal mood - Skin Skin exam: Present: normal color, warm, dry Results - Labs CBC & BMP: 09/16/16 04:48 09/18/16 05:32 Lab Results: I have reviewed the past 24 hour labs (Noted anemia hypokalemia magnesium is pending)
[2016-09-18] MEDS: POTASSIUM CHLORIDE 20 MEQ TABLET PO PRN ×2 (12:11→14:19)
[2016-09-18] MEDS: SODIUM CHLORIDE 0.45% 1,000 ML IV SCH (14:18)
[2016-09-18 15:29] LABS: Myeloperoxidase Antibody < 0.2 U
[2016-09-18] MEDS: AZITHROMYCIN INJ 500 MG in SODIUM CHLORIDE 0.9% 250 ML IV SCH (17:17)
[2016-09-18] MEDS: cefTRIAXone 2,000 MG in SODIUM CHLORIDE 0.9% 100 ML IV SCH (20:14)
[2016-09-18] MEDS: INSULIN GLARGINE 100 UNIT/ML SUBCUT SCH (21:21)
[2016-09-19] MEDS: POTASSIUM CHLORIDE 20 MEQ TABLET PO PRN ×3 (00:06→04:01)
[2016-09-19] MEDS: ALBUTEROL/IPRATROPIUM 3 ML NEB RESP TX SCH ×4 (01:48→18:53)
[2016-09-19] MEDS: SODIUM CHLORIDE 0.45% 1,000 ML IV SCH ×2 (04:29→17:56)
[2016-09-19 07:37] LABS: Calcium 8.2 MG/DL (8.5-10.1); Magnesium 1.6 MG/DL (1.8-2.4); Osmolality,Calculated 298.4 MOS/KG (273-304); Potassium 3.8 MMOL/L (3.5-5.1)
[2016-09-19] MEDS: amLODIPine 10 MG TABLET PO SCH (09:10)
[2016-09-19] MEDS: PANTOPRAZOLE 40 MG TABLET PO SCH (09:10)
[2016-09-19] MEDS: ATENOLOL 50 MG TABLET PO SCH (09:10)
[2016-09-19] MEDS: ENOXAPARIN 30 MG/0.3 ML SYRINGE SUBCUT SCH (09:10)
[2016-09-19] MEDS: INSULIN REGULAR 100 UNIT/ML SUBCUT SCH ×4 (09:10→20:37)
--- NOTE | 2016-09-19 09:27 | XRay Report ---
XR chest 2V Indication: Pneumonia Comparison: 14 September 2016 Findings: The heart and mediastinum are normal in size and configuration. The pulmonary vascularity is normal in caliber. Right-sided pulmonary infiltrates have improved. No other new lung infiltrates, effusions, pneumothorax or other abnormality is demonstrated. Impression: Improving right pulmonary infiltrates when compared to previous exam. PROCEDURE INTERPRETED AT [facility] DEPARTMENT OF RADIOLOGY Final Report Signed by: Dr. Lavon Estrella
--- NOTE | 2016-09-19 10:10 | Pulmonology Progress Note ---
Pulmonary - PN: Subj Interval history: The patient is a 35-year-old black lady that is a little overweight and has diabetes. She came in with an extensive right mid lung pneumonia. She has positive Legionella serology. She is getting IV antibiotics. Her renal function has improved nicely. Her breathing is doing better she is not coughing up as much now. She says her shortness of breath is much better. Her chest x-ray is markedly improved. Exam (Progress Note) - Constitutional Vitals: Period Temp Pulse Resp BP Sys/Riley Pulse Ox Last 24 Hr 97.2 F-98.7 F 65-88 17-22 127-159/74-102 94-100 Exam: General appearance: no acute distress, over weight, she is sitting up and looks comfortable and in no distress. - Head Head exam: Present: normal inspection, normocephalic - Eye Eye exam: Present: EOMI. Absent: scleral icterus - ENT ENT exam: Present: normal exam - Neck Neck exam: Present: normal inspection. Absent: lymphadenopathy, thyromegaly - Respiratory Respiratory exam: Present: She has slightly diminished breath sounds on the right with some minimal crackles. Her left lung is still clear. Her right lung sounds better. - Cardiovascular Cardiovascular exam: Present: regular rate and rhythm. Absent: gallop, systolic murmur - GI/Abdominal GI/Abdominal exam: Present: normal bowel sounds, soft. Absent: distended, organomegaly, tenderness - Extremities Exam Extremities exam: Absent: calf tenderness, edema - Neurological Exam Neurological exam: Present: alert, oriented X3, CN II-XII intact - Psychiatric Psychiatric exam: Absent: anxious - Skin Skin exam: Present: warm, dry. Absent: rash Results - Labs CBC & BMP: 09/16/16 04:48 09/19/16 06:35 Assessment and Plan (1) Acute renal insufficiency Problem details: renal function is not improving and there is concerning for underlying pathology that is undiagnosed at this point Status: Chronic Assessment and plan: The patient is having better renal function and her creatinine is down to 2.4. Apparently her biopsy is consistent with acute tubular necrosis associated with her pneumonia. Overall she is improving nicely. Current Visit: Yes (2) History of hypertension Status: Chronic Assessment and plan: Her blood pressure and heart rate are stable. She appears to be hemodynamically stable. Current Visit: Yes (3) Diabetes Status: Chronic Assessment and plan: Her glucose is 204 this morning. Current Visit: Yes Qualifiers: Diabetes mellitus type: type 2 Chronic kidney disease stage: stage 4 ( severe) (4) Legionella pneumonia Status: Acute Assessment and plan: She is getting antibiotics for Legionella pneumonia. Clinically she is much better and her chest x-ray is improving. She continues to do well and can go home from a pulmonary standpoint. Current Visit: Yes
--- NOTE | 2016-09-19 12:12 | Nephrology Progress Note ---
Nephrology - PN: Subj Interval history: Pt sitting in bedside chair. Wants to go home. Creatinine rapidly improving. Down to 2.4 from 3.8. eGFR 35cc/min. Renal bx c/w ATN. Exam (PN)-Nephrology - Vital Signs Vital signs: Period Temp Pulse Resp BP Sys/Riley Pulse Ox Last 24 Hr 97.2 F-98.7 F 65-88 17-22 127-159/74-98 94-99 - General Appearance General appearance: well-developed, obese EENT: ATNC, PERRL, mucous membranes moist, hearing intact, vision intact Neck: no JVD, no thyromegaly Respiratory: no kyphosis, clear Cardiology: no murmurs, no rub Gastrointestinal: normoactive bowel sounds, no tenderness, obese Integumentary: no rash, warm and dry Neurologic: no focal deficit, no asterixis, alert and oriented x3 Musculoskeletal: no deformities, no erythema Psychiatric: mood/affect appropriate, cooperative - Lab 09/16/16 04:48 09/19/16 09:11 Most recent lab results Calcium 8.2 MG/DL (8.5-10.1) L 09/19/16 06:35 Magnesium 1.6 MG/DL (1.8-2.4) L 09/19/16 06:35 Ur Total Protein 24 Hr 1092 MG/24HR (0-149.1) H 09/14/16 07:16 Assessment and Plan (1) SEMAJ (acute kidney injury) Problem details: secondary to biopsy proven acute tubular necrosis (ATN). Resolving rapidly. Status: Acute Assessment and plan: At risk for repeat ATN in recovery period (~14days). Avoid nephrotoxins, hypotension. Renally dose all meds for eGFR 20cc/min, Creatinine 2.4 from 3.8 yesterday. Stable for d/c today. Follow up nephrology clinic 4-6 weeks. Current Visit: Yes
--- NOTE | 2016-09-19 12:30 | Hospitalist Progress Note ---
Assessment and Plan (1) Accelerated hypertension with diastolic congestive heart failure, NYHA class 3 Status: Acute Assessment and plan: Patient is put on amlodipine 10 mg daily and resumed atenolol 50 mg daily. Withholding losartan and lisinopril. Repeat a BMP and magnesium tomorrow Current Visit: Yes (2) Accelerated hypertension Status: Acute Assessment and plan: Raise the antihypertensive as mentioned above Current Visit: Yes (3) Right middle lobe pneumonia Status: Acute Assessment and plan: Significant Improvement in the infiltrate. Breathing is normal. Current Visit: Yes Qualifiers: Pneumonia type: due to unspecified organism Qualified Code(s): J18.1 - Lobar pneumonia, unspecified organism (4) Acute renal insufficiency Problem details: renal function is not improving and there is concerning for underlying pathology that is undiagnosed at this point Status: Chronic Assessment and plan: Continue to improving renal function with serum creatinine of 2.4 today. Continue to withhold TRACI inhibitors and angiotensin receptor blockers. Continue to hydrate the patient. Current Visit: Yes (5) Diabetes Status: Chronic Current Visit: Yes Qualifiers: Diabetes mellitus type: type 2 Chronic kidney disease stage: stage 4 ( severe) Hospitalist: Subjective Interval history: Patient has been seen interviewed and examined and chart has been reviewed. She states that she is doing a lot better. Repeat chest x-ray shows improvement of the right middle lobe pneumonia. I me to see any serologies done as to a typical infections and therefore I am going to send out for IgM and IgG to mycoplasma which is suspect must be the offending organism and also check urine Legionella antigen Exam - Constitutional Vitals: Period Temp Pulse Resp BP Sys/Riley Pulse Ox Last 24 Hr 97.2 F-98.7 F 65-88 17-22 127-173/74-101 94-99 General appearance: over weight - Head Head exam: Present: normocephalic, atraumatic - Eye Eye exam: Present: EOMI Pupils: Present: FARIHA - ENT ENT exam: Present: normal oropharynx - Neck Neck exam: Present: normal inspection - Respiratory Respiratory exam: Present: clear to auscultation bilaterally - Cardiovascular Cardiovascular exam: Present: regular rate and rhythm - GI/Abdominal GI/Abdominal exam: Present: normal bowel sounds, soft - Extremities Exam Extremities exam: Present: full ROM - Neurological Exam Neurological exam: Present: alert, oriented X3, CN II-XII intact - Psychiatric Psychiatric exam: Present: normal affect, normal mood - Skin Skin exam: Present: normal color, warm, dry Results - Labs CBC & BMP: 09/16/16 04:48 09/19/16 09:11 Lab Results: I have reviewed the past 24 hour labs (Improved creatinine to 2.4 today potassium was normal)
[2016-09-19] MEDS: ISOSORBIDE DINITRATE 20 MG TABLET PO SCH ×2 (14:10→20:36)
[2016-09-19] MEDS: AZITHROMYCIN INJ 500 MG in SODIUM CHLORIDE 0.9% 250 ML IV SCH (16:46)
[2016-09-19] MEDS: cefTRIAXone 2,000 MG in SODIUM CHLORIDE 0.9% 100 ML IV SCH (20:35)
[2016-09-19] MEDS: INSULIN GLARGINE 100 UNIT/ML SUBCUT SCH (20:36)
[2016-09-20] MEDS: ALBUTEROL/IPRATROPIUM 3 ML NEB RESP TX SCH ×2 (01:30→07:25)
[2016-09-20 07:57] LABS: Calcium 8.4 MG/DL (8.5-10.1); Magnesium 1.5 MG/DL (1.8-2.4); Potassium 3.5 MMOL/L (3.5-5.1)
[2016-09-20 07:59] LABS: Basophils % 0.2 % (0.0-0.8); Eosinophils % 0.1 % (0.00-10.9); Hematocrit 26.5 VOL% (35.7-47.0); Hemoglobin 8.8 GM/DL (12.0-16.0); Immature Granulocytes % 6.8 %; Lymphocytes # 1.3 10*3/uL (1.4-4.0); Lymphocytes % 9.5 % (21.3-54.2); Mean Corpuscular HGB Conc 33.2 GM/DL (32-36); Mean Corpuscular Hemoglobin 29 PG (27-34); Mean Corpuscular Volume 88.3 FL (87-102); Mean Platelet Volume 9.1 FL (9.6-12.0); Monocytes # 0.3 10*3/uL (0.11-0.8); Monocytes % 2.4 % (1.7-12.7); NRBC # 0.02 10*3/uL; Neutrophils # 10.7 10*3/uL (1.4-7.4); Platelet Count 352 T/CUMM (130-400); Red Cell Distribution Width 17.8 % (9.3-17.3); White Blood Count 13.2 T/CUMM (4-12)
--- NOTE | 2016-09-20 08:19 | Pulmonology Progress Note ---
Pulmonary - PN: Subj Interval history: 09/13/16 35-year-old previously healthy lady other than diabetes that came in with fairly extensive right middle lobe and right lower lobe pneumonia. Acute kidney failure with creatinine up to 7.6. Nephrology is helping evaluate. She is a little more hypoxic today. Will put on nasal biprong's. Blood cultures are negative. Serologic studies pending. 09/14/2016 patient says she feels better and is a little less short of breath. However her creatinine has climbed to 8.3. Nephrology is following. Chest x- ray shows fairly extensive pneumonia on the right side slightly worse than earlier x-ray. Continuing broad antibiotics. Cultures and antigenic studies are pending. 09/20/2016 urine antigen from 09/11/2016 is come back positive for Legionella. Patient currently is on Rocephin. May do better with Levaquin or Zithromax. Her chest x-ray is markedly improved over the last 5 or 6 days. Probably needs 2-3 weeks of antibiotics. Has been here a little over a week. Renal function has improved. Exam (Progress Note) - Constitutional Vitals: Period Temp Pulse Resp BP Sys/Riley Pulse Ox Last 24 Hr 97.3 F-98.4 F 71-99 16-22 119-173/67-101 91-99 Exam: Patient is alert a little bit sluggish with her speech. Temperature normal. Vital signs otherwise normal. O2 sat 98% on 2 L.. Pupils react to light. Throat is clear. Neck is supple no bruits. Chest shows rales over the right middle lobe primarily. Heart normal rate and rhythm no murmurs. Abdomen soft nontender no masses. Bowel sounds present. Extremities no clubbing cyanosis. Trace of pedal edema. Calves nontender. Results - Labs CBC & BMP: 09/20/16 07:48 09/20/16 07:03 Lab Results: I have reviewed the past 24 hour labs - Diagnostic Findings Procedure: Chest x-ray: image reviewed by me (Yesterday's x-ray shows that the right middle lobe pneumonia is about 75% improved.) Assessment and Plan (1) Right middle lobe pneumonia Status: Acute Assessment and plan: Apparently community-acquired right middle and lower lobe pneumonia. Agree with antibiotics chosen. Cultures and urine antigens will be checked. She also has acute renal changes it appears and is diabetic. She would be at risk for gram-negative infections or unusual infections such as fungi. 09/13/2016 right middle lobe right lower lobe infiltrate with consolidation on plain x-ray. On empiric antibiotics. Having some hypoxemia. Adding oxygen. Acute kidney failure as well. Diabetic. 09/14/2016 community-acquired right middle lobe pneumonia occurring in the summer. Patient is on appropriate antibiotics. Awaiting cultures and antigenic studies. 09/20/2016 Legionella pneumonia. Infectious disease has recommended Levaquin. Patient's renal function has improved. Perhaps could be changed to that. Needs another couple of weeks of oral antibiotics post discharge. Current Visit: Yes Qualifiers: Pneumonia type: due to unspecified organism Qualified Code(s): J18.1 - Lobar pneumonia, unspecified organism (2) Acute renal insufficiency Problem details: renal function is not improving and there is concerning for underlying pathology that is undiagnosed at this point Status: Chronic Assessment and plan: Creatinine is 5.5. Renal is seen. Serum albumin 2.2. 09/13/2016 creatinine up to 7.6. Defer to nephrology. No significant hematuria. 09/14/2016 creatinine 8.3. Nephrology on the case. 09/20/2016 this is improved markedly with creatinine down to 2.4. Patient has ATN. Likely this is related to the Legionella Current Visit: Yes (3) History of hypertension Status: Chronic Assessment and plan: Blood pressure around 150/80. Probably a little high for a diabetic but not bad. 09/13/2016 blood pressure acceptable. 09/14/16 blood pressure fairly well controlled. 09/20/2016 blood pressure well controlled. Current Visit: Yes (4) Diabetes Status: Chronic Assessment and plan: Defer to primary service. 09/13/2016 managing with sliding scale. Blood sugar in the mid to upper 100s. 09/14/2016 blood sugars in the 200s now. 09/20/2016 blood sugars are better. Current Visit: Yes Qualifiers: Diabetes mellitus type: type 2 Chronic kidney disease stage: stage 4 ( severe)
[2016-09-20 08:24] LABS: Anisocytosis 1+; Eosinophils 1 % (0-10); Hypochromasia 1+; Lymphocytes 10 % (20-55); Microcytosis 1+; Segmented Neutrophils 87 % (50-85); Total Cells Counted 100
[2016-09-20 08:25] LABS: Platelet Estimate Normal
[2016-09-20 08:35] LABS: Magnesium 1.5 MG/DL (1.8-2.4)
[2016-09-20] MEDS: ATENOLOL 50 MG TABLET PO SCH (08:40)
[2016-09-20] MEDS: amLODIPine 10 MG TABLET PO SCH (08:40)
[2016-09-20] MEDS: PANTOPRAZOLE 40 MG TABLET PO SCH (08:41)
[2016-09-20] MEDS: ISOSORBIDE DINITRATE 20 MG TABLET PO SCH (08:41)
[2016-09-20] MEDS: INSULIN REGULAR 100 UNIT/ML SUBCUT SCH ×2 (08:41→13:10)
[2016-09-20] MEDS ORDERED: ENOXAPARIN 40 MG/0.4 ML SYRINGE SUBCUT SCH (09:00)
--- NOTE | 2016-09-20 10:08 | Discharge Summary ---
Hospital Course - Hospital Course Hospital Course: This is a very pleasant 35-year-old female that presented to the ED at [facility] on September 11, 2016 for the evaluation of shortness of breath, nausea, and weakness. Patient has a medical history significant for remote nicotine abuse, hypertension and diabetes. At the time of presentation, the patient reported no surgical history. The patient reported the onset of symptoms 4 days prior to presentation. She reported a recent change in her medications however she was unable to recite what medications had actually been changed. Her family was present at bedside and voiced concerns regarding the patient's weight gain and attributed the weight gain to her possibly going into congestive heart failure. They became alarmed when the patient stopped eating and started to lie in bed all day. Her mother, who lives in another town came to her home and transported her to the ED at [facility] for further evaluation. The patient was assessed at the time of ED presentation. The patient was noted to be febrile with a temperature of 100.1, tachycardic with a pulse rate at 144 , and mildly hypotensive with a blood pressure noted at 96/67. Labs were obtained; and the patient was noted to be hypokalemic with a potassium noted at 3.4, hyponatremic with a sodium noted at 132, hypochloremic with a chloride noted at 92. The patient was also noted to have impaired renal function with the BUN noted at 44 and creatinine at 5.10. Chest x-ray revealed right middle lobe pneumonia. The patient was subsequently admitted to [facility] for continuation of care. Due to the severity of the patient's renal function, and nephrology consultation was requested. In addition, a pulmonary consultation was requested also. The patient was admitted. Empiric antibiotic coverage and gentle rehydration was initiated. On September 13, 2016; bilateral renal ultrasound was performed which reported enlargement of the left kidney in comparison to the right however no masses or hydronephrosis is noted. Slightly inhomogeneous echogenicity in the left kidney which could be possibly related to medical renal disease. The patient's renal function remained impaired. The patient was evaluated per pulmonology and recommendations were made. Due to the severity of the patient's renal function, and infectious disease consultation was requested to evaluate current antibiotic regimen and recommendations were made. On August 17, 2016, the patient underwent renal biopsy which was significant for ATN with some IgA deposition c/w systemic infection. Antibiotic coverage continued per infectious disease recommendation. The patient's renal function has gradually improved. Today, the patient's BUN is noted at 49 and creatinine is noted at 2.20. This is a modest improvement from the time of admission in which he was noted at 44 /5.10. The patient's condition has remained stable. She has not experienced any significant overnight events. The patient's vital signs are stable. Today, we feel that she is indeed appropriate for discharge to follow-up with her primary care physician and clothes separator as directed. Spoke with patient in great detail regarding the need to refrain from nephrotoxic agents. Encouraged the patient to remain abreast regarding her current medications and possible side effects. Discharge Plan - Discharge Medications No Action Atenolol 50 mg PO DAILY Losartan Potassium 100 mg PO DAILY Metformin HCl 1,000 mg PO BID Insulin Degludec [Tresiba Flextouch U-100] 40 unit SUBCUT QAM Chlorthalidone 25 mg PO DAILY Lisinopril 20 mg PO DAILY - Follow Up or Referral - Forms/Instructions Exam - Constitutional Vitals: Period Temp Pulse Resp BP Sys/Riley Pulse Ox Last 24 Hr 97.3 F-98.4 F 71-99 16-22 119-173/67-101 91-99 Discharge Results Procedures and tests throughout hospitalization: Pending Orders 09/19/16 09:16 Mycoplasma pneumo Abs IgG,IgM Routine 09/21/16 04:00 CBC [Comp Blood Count Auto Diff] IN AM Magnesium IN AM Phosphorous IN AM Labs on day of discharge: Labs from last 24 hours 09/20/16 09/20/16 09/20/16 07:48 07:48 07:32 WBC 13.2 H RBC 3.00 L Hgb 8.8 L Hct 26.5 L MCV 88.3 MCH 29 MCHC 33.2 RDW 17.8 H Plt Count 352 MPV 9.1 L Neut % (Auto) 81.0 H Lymph % (Auto) 9.5 L [place] % (Auto) 2.4 Eos % (Auto) 0.1 Baso % (Auto) 0.2 Neut # (Auto) 10.7 H Lymph # (Auto) 1.3 L [place] # (Auto) 0.3 Eos # (Auto) 0.0 Baso # (Auto) 0.0 Total Counted 100 Immature Gran % 6.8 Nucleated RBC % 0.2 Immature Gran # 0.90 Segmented Neutrophils 87 H Lymphocytes 10 L Monocytes 2 Eosinophils 1 Nucleated RBCs # 0.02 Platelet Estimate Normal Hypochromasia 1+ Anisocytosis 1+ Microcytosis 1+ Sodium Potassium Chloride Carbon Dioxide Anion Gap BUN Creatinine GFR Calculation BUN/Creatinine Ratio Glucose POC Glucose 174 H Calculated Osmolality Calcium Phosphorus 4.0 Magnesium 1.5 L 09/20/16 09/19/16 09/19/16 07:03 19:39 16:27 WBC RBC Hgb Hct MCV MCH MCHC RDW Plt Count MPV Neut % (Auto) Lymph % (Auto) [place] % (Auto) Eos % (Auto) Baso % (Auto) Neut # (Auto) Lymph # (Auto) [place] # (Auto) Eos # (Auto) Baso # (Auto) Total Counted Immature Gran % Nucleated RBC % Immature Gran # Segmented Neutrophils Lymphocytes Monocytes Eosinophils Nucleated RBCs # Platelet Estimate Hypochromasia Anisocytosis Microcytosis Sodium 143 Potassium 3.5 Chloride 107 Carbon Dioxide 25 Anion Gap 14.5 BUN 49 H Creatinine 2.20 H GFR Calculation 38 BUN/Creatinine Ratio 22.00 H Glucose 181 H POC Glucose 399 H 295 H Calculated Osmolality 302.0 Calcium 8.4 L Phosphorus Magnesium 1.5 L 09/19/16 09/19/16 11:38 09:11 WBC RBC Hgb Hct MCV MCH MCHC RDW Plt Count MPV Neut % (Auto) Lymph % (Auto) [place] % (Auto) Eos % (Auto) Baso % (Auto) Neut # (Auto) Lymph # (Auto) [place] # (Auto) Eos # (Auto) Baso # (Auto) Total Counted Immature Gran % Nucleated RBC % Immature Gran # Segmented Neutrophils Lymphocytes Monocytes Eosinophils Nucleated RBCs # Platelet Estimate Hypochromasia Anisocytosis Microcytosis Sodium Potassium 3.7 Chloride Carbon Dioxide Anion Gap BUN Creatinine GFR Calculation BUN/Creatinine Ratio Glucose POC Glucose 237 H Calculated Osmolality Calcium Phosphorus Magnesium DS: Provider Date of admission: 09/12/16 01:35 Primary care physician: . No PCP Attending physician on admission: Johnny Cordoba MD Consults: 09/12/16 01:36 Consult to Physician [CONS] Routine Comment: abnormal chest xray Consulting Provider: Keith Zimmerman Consult to Specialist Group: Pulmonology When should Consulting Provider be notified: In am Person Notified: Dr. Zimmerman Date Notified: 09/12/16 Time Notified: 09:59 Consult to Physician [CONS] Routine Comment: bun and creatinine elevated Consulting Provider: Mehrdad Portillo Jr. Consult to Specialist Group: Nephrology When should Consulting Provider be notified: In am Person Notified: Dr. Portillo Date Notified: 09/12/16 Time Notified: 08:40 09/12/16 06:31 Consult to Dietitian [CONS] Routine Reason for Dietitian: Other 09/14/16 12:07 Consult to Physician [CONS] Routine Comment: Consult for Legionella Pneumonia Consulting Provider: Gwen Mercedes When should Consulting Provider be notified: Now Consult to Specialist Group: Infectious Disease When should Consulting Provider be notified: Now Person Notified: LOAN Date Notified: 09/14/16 Time Notified: 13:27 09/14/16 14:37 Consult to Physician [CONS] Routine Comment: Kidney biopsy Consulting Provider: When should Consulting Provider be notified: In am When should Consulting Provider be notified: Now 09/16/16 09:06 Consult to Case Mgmt/Social Srvs [CONS] Routine Reason for Case Mgmt/Social Srvs: Other Consult Comment: mother has questions reuested to see SW Discharging clinician: Tenzin Song CNP
[2016-09-20] MEDS: SODIUM CHLORIDE 0.45% 1,000 ML IV SCH (10:19)
--- NOTE | 2016-09-20 11:17 | Discharge Summary ---
Hospital Course - Hospital Course Hospital Course: This is a very pleasant 35-year-old female that presented to the ED at [facility] on September 11, 2016 for the evaluation of shortness of breath, nausea, and weakness. Patient has a medical history significant for remote nicotine abuse, hypertension and diabetes. At the time of presentation, the patient reported no surgical history. The patient reported the onset of symptoms 4 days prior to presentation. She reported a recent change in her medications however she was unable to recite what medications had actually been changed. Her family was present at bedside and voiced concerns regarding the patient's weight gain and attributed the weight gain to her possibly going into congestive heart failure. They became alarmed when the patient stopped eating and started to lie in bed all day. Her mother, who lives in another town came to her home and transported her to the ED at [facility] for further evaluation. The patient was assessed at the time of ED presentation. The patient was noted to be febrile with a temperature of 100.1, tachycardic with a pulse rate at 144 , and mildly hypotensive with a blood pressure noted at 96/67. Labs were obtained; and the patient was noted to be hypokalemic with a potassium noted at 3.4, hyponatremic with a sodium noted at 132, hypochloremic with a chloride noted at 92. The patient was also noted to have impaired renal function with the BUN noted at 44 and creatinine at 5.10. Chest x-ray revealed right middle lobe pneumonia. The patient was subsequently admitted to [facility] for continuation of care. Due to the severity of the patient's renal function, and nephrology consultation was requested. In addition, a pulmonary consultation was requested also. The patient was admitted. Empiric antibiotic coverage and gentle rehydration was initiated. On September 13, 2016; bilateral renal ultrasound was performed which reported enlargement of the left kidney in comparison to the right however no masses or hydronephrosis is noted. Slightly inhomogeneous echogenicity in the left kidney which could be possibly related to medical renal disease. The patient's renal function remained impaired. The patient was evaluated per pulmonology and recommendations were made. Due to the severity of the patient's renal function, and infectious disease consultation was requested to evaluate current antibiotic regimen and recommendations were made. On August 17, 2016, the patient underwent renal biopsy which was significant for ATN with some IgA deposition c/w systemic infection. Antibiotic coverage continued per infectious disease recommendation. The patient's renal function has gradually improved. Today, the patient's BUN is noted at 49 and creatinine is noted at 2.20. This is a modest improvement from the time of admission in which he was noted at 44 /5.10. The patient's condition has remained stable. She has not experienced any significant overnight events. The patient's vital signs are stable. Today, we feel that she is indeed appropriate for discharge to follow-up with her primary care physician and nitro worker as directed. Spoke with patient in great detail regarding the need to refrain from nephrotoxic agents. Encouraged the patient to remain abreast regarding her current medications and possible side effects. Diagnosis - Discharge Diagnosis (1) Accelerated hypertension with diastolic congestive heart failure, NYHA class 3 Status: Acute (2) Accelerated hypertension Status: Acute (3) Right middle lobe pneumonia Status: Acute (4) Acute renal insufficiency Status: Chronic (5) Diabetes Status: Chronic Discharge Plan - Discharge Data Disposition: Disch To Home/Self Care Condition at Discharge: Stable Discharge Diet: diabetic diet, heart healthy Activity: increase activity as tolerated Weight Bearing at Discharge: weight bear as tolerated Driving: not until seen by doctor Contact your physician if you experience:: fever over 101, Difficulty voiding, Nausea/Vomiting, Shortness of breath, pain uncontrolled by pain medications - Discharge Medications New Insulin Glargine [Lantus] 40 unit SUBCUT BEDTIME #1000 unit Isosorbide Dinitrate [Isordil] 20 mg PO BID #60 tablet Pantoprazole Tab [Protonix Tab] 40 mg PO DAILY #30 tablet amLODIPine [Norvasc] 10 mg PO DAILY #30 tablet hydrALAZINE TAB [Apresoline Tab] 50 mg PO BID #60 tablet Minocycline [Minocin] 100 mg PO Q12HR #28 capsule Continue Atenolol 50 mg PO DAILY Insulin Degludec [Tresiba Flextouch U-100] 40 unit SUBCUT QAM Discontinued Losartan Potassium 100 mg PO DAILY Metformin HCl 1,000 mg PO BID Chlorthalidone 25 mg PO DAILY Lisinopril 20 mg PO DAILY - Follow Up or Referral - Forms/Instructions Exam - Constitutional Vitals: Period Temp Pulse Resp BP Sys/Riley Pulse Ox Last 24 Hr 97.3 F-98.4 F 71-99 16-22 119-173/67-101 91-99 General appearance: over weight - Head Head exam: Present: normocephalic, atraumatic - Eye Eye exam: Present: EOMI Pupils: Present: FARIHA - ENT ENT exam: Present: normal exam - Respiratory Respiratory exam: Present: clear to auscultation bilaterally - Cardiovascular Cardiovascular exam: Present: regular rate and rhythm - GI/Abdominal GI/Abdominal exam: Present: normal bowel sounds, soft - Extremities Exam Extremities exam: Present: full ROM - Neurological Exam Neurological exam: Present: alert, oriented X3, CN II-XII intact - Psychiatric Psychiatric exam: Present: normal affect, normal mood - Skin Skin exam: Present: normal color, warm, dry Discharge Results Procedures and tests throughout hospitalization: Pending Orders 09/19/16 09:16 Mycoplasma pneumo Abs IgG,IgM Routine 09/21/16 04:00 CBC [Comp Blood Count Auto Diff] IN AM Magnesium IN AM Phosphorous IN AM Labs on day of discharge: Labs from last 24 hours 09/20/16 09/20/16 09/20/16 07:48 07:48 07:32 WBC 13.2 H RBC 3.00 L Hgb 8.8 L Hct 26.5 L MCV 88.3 MCH 29 MCHC 33.2 RDW 17.8 H Plt Count 352 MPV 9.1 L Neut % (Auto) 81.0 H Lymph % (Auto) 9.5 L Greenlee % (Auto) 2.4 Eos % (Auto) 0.1 Baso % (Auto) 0.2 Neut # (Auto) 10.7 H Lymph # (Auto) 1.3 L Greenlee # (Auto) 0.3 Eos # (Auto) 0.0 Baso # (Auto) 0.0 Total Counted 100 Immature Gran % 6.8 Nucleated RBC % 0.2 Immature Gran # 0.90 Segmented Neutrophils 87 H Lymphocytes 10 L Monocytes 2 Eosinophils 1 Nucleated RBCs # 0.02 Platelet Estimate Normal Hypochromasia 1+ Anisocytosis 1+ Microcytosis 1+ Sodium Potassium Chloride Carbon Dioxide Anion Gap BUN Creatinine GFR Calculation BUN/Creatinine Ratio Glucose POC Glucose 174 H Calculated Osmolality Calcium Phosphorus 4.0 Magnesium 1.5 L 09/20/16 09/19/16 09/19/16 07:03 19:39 16:27 WBC RBC Hgb Hct MCV MCH MCHC RDW Plt Count MPV Neut % (Auto) Lymph % (Auto) Greenlee % (Auto) Eos % (Auto) Baso % (Auto) Neut # (Auto) Lymph # (Auto) Greenlee # (Auto) Eos # (Auto) Baso # (Auto) Total Counted Immature Gran % Nucleated RBC % Immature Gran # Segmented Neutrophils Lymphocytes Monocytes Eosinophils Nucleated RBCs # Platelet Estimate Hypochromasia Anisocytosis Microcytosis Sodium 143 Potassium 3.5 Chloride 107 Carbon Dioxide 25 Anion Gap 14.5 BUN 49 H Creatinine 2.20 H GFR Calculation 38 BUN/Creatinine Ratio 22.00 H Glucose 181 H POC Glucose 399 H 295 H Calculated Osmolality 302.0 Calcium 8.4 L Phosphorus Magnesium 1.5 L 09/19/16 11:38 WBC RBC Hgb Hct MCV MCH MCHC RDW Plt Count MPV Neut % (Auto) Lymph % (Auto) Greenlee % (Auto) Eos % (Auto) Baso % (Auto) Neut # (Auto) Lymph # (Auto) Greenlee # (Auto) Eos # (Auto) Baso # (Auto) Total Counted Immature Gran % Nucleated RBC % Immature Gran # Segmented Neutrophils Lymphocytes Monocytes Eosinophils Nucleated RBCs # Platelet Estimate Hypochromasia Anisocytosis Microcytosis Sodium Potassium Chloride Carbon Dioxide Anion Gap BUN Creatinine GFR Calculation BUN/Creatinine Ratio Glucose POC Glucose 237 H Calculated Osmolality Calcium Phosphorus Magnesium DS: Provider Date of admission: 09/12/16 01:35 Primary care physician: . No PCP Attending physician on admission: Johnny Cordoba MD Consults: 09/12/16 01:36 Consult to Physician [CONS] Routine Comment: abnormal chest xray Consulting Provider: Keith Zimmerman Consult to Specialist Group: Pulmonology When should Consulting Provider be notified: In am Person Notified: Dr. Zimmerman Date Notified: 09/12/16 Time Notified: 09:59 Consult to Physician [CONS] Routine Comment: bun and creatinine elevated Consulting Provider: Mehrdad Portillo Jr. Consult to Specialist Group: Nephrology When should Consulting Provider be notified: In am Person Notified: Dr. Portillo Date Notified: 09/12/16 Time Notified: 08:40 09/12/16 06:31 Consult to Dietitian [CONS] Routine Reason for Dietitian: Other 09/14/16 12:07 Consult to Physician [CONS] Routine Comment: Consult for Legionella Pneumonia Consulting Provider: Gwen Mercedes When should Consulting Provider be notified: Now Consult to Specialist Group: Infectious Disease When should Consulting Provider be notified: Now Person Notified: LOAN Date Notified: 09/14/16 Time Notified: 13:27 09/14/16 14:37 Consult to Physician [CONS] Routine Comment: Kidney biopsy Consulting Provider: When should Consulting Provider be notified: In am When should Consulting Provider be notified: Now 09/16/16 09:06 Consult to Case Mgmt/Social Srvs [CONS] Routine Reason for Case Mgmt/Social Srvs: Other Consult Comment: mother has questions reuested to see SW Discharging clinician: Jesús Canseco MD
[2016-09-20 11:55] VITALS: BP 124/67
[2016-09-21 13:39] LABS: Mycoplasma pneumoniae Ab, IgG 4.93 index (<=0.90); Mycoplasma pneumoniae Ab, IgM 0.95 index (<=0.90)
--- NOTE | 2016-10-01 14:17 | Pathology Report from [facility] ---
[facility] ACCESSION # : [id number] PATIENT NAME : Latoya Hernandez ORDERING DR : Frankie Gilliland MD CLINICAL HX: Legionella pneumonia POST-OP DX: Same SPECIMEN INFO: #1 Renal biopsy in formalin #2 Renal biopsy in [place] fixative - To [facility] GROSS DESCRIPTION: #1 Received in formalin labeled with the patients name LATOYA HERNANDEZ and is [facility].#2 Received in [place] fixative labeled with the patients name LATOYA HERNANDEZ and is a renal biopsy to be packed and shipped to [facility]. DIAGNOSIS FOR LATOYA HERNANDEZ: The following is the renal biopsy report from Frankie Coello MD., [place], [place]:# 1 AND #2 KIDNEY, BIOPSY: Acute tubular injury. IgA Glomerulopathy, see comment. Arteriosclerosis, moderate. See attached report.Comment: Mesangial IgA deposits may represent primary IgA Nephropathy or they may be a secondary event. Secondary causes include infection associated glomerulonephritis. Deep seated or hidden infections, such as infective endocarditis, deep visceral abscess, etc, should be considered if clinically indicated. COLLECTED DATE: 09/16/2016 [facility] REPORT DATE: 10/01/2016 ELECTRONICALLY SIGNED BY: Faye Franklin III, M.D. 10/01/2016 - 8:50:17 [facility]
== END 2016-09-20 13:21 | disposition home or self-care (01) | DRG 177 ==
LOC: N.ED 18:48 → N.EDINP 09-12 01:35 → SUATTDRO 09-12 01:35 → N.2E 09-12 02:23
PROVIDERS: ADMIT Internal Medicine; ATTEND Internal Medicine Infectious Disease

== ENCOUNTER 2019-03-23 13:36 | Observation (INO) ==
[2019-03-23] MEDS ORDERED: MORPHINE 4 MG/1 ML VIAL IV PRN (15:20)
[2019-03-23] MEDS ORDERED: ACETAMINOPHEN 325 MG TABLET PO PRN (15:20)
[2019-03-23] MEDS ORDERED: ONDANSETRON 4 MG/2 ML VIAL IV PRN (15:20)
[2019-03-23] MEDS ORDERED: PROMETHAZINE 25 MG/1 ML VIAL IM PRN (15:20)
[2019-03-23] MEDS ORDERED: DEXTROSE 10% 250 ML BAG IV PRN (15:22)
[2019-03-23] MEDS ORDERED: GLUCAGON 1 MG VIAL IM PRN (15:22)
[2019-03-23] MEDS: PANTOPRAZOLE 40 MG TABLET PO SCH (16:41)
[2019-03-23] MEDS: amLODIPine 10 MG TABLET PO SCH (16:41)
[2019-03-23] MEDS: INSULIN REGULAR 100 UNIT/ML SUBCUT SCH ×2 (16:42→21:48)
[2019-03-23] MEDS: ASPIRIN EC 81 MG TABLET PO SCH (17:15)
[2019-03-23] MEDS: carvediloL 6.25 MG TABLET PO SCH ×2 (17:15→21:47)
[2019-03-23 19:02] LABS: Basophils % 0.2 % (0.0-0.8); Eosinophils % 0.1 % (0.00-10.9); Hematocrit 37.4 VOL% (35.7-47.0); Hemoglobin 11.1 GM/DL (12.0-16.0); Immature Granulocytes % 0.6 %; Immature Granulocytes Absolute 0.07 #; Lymphocytes # 1.8 10*3/uL (1.4-4.0); Lymphocytes % 14.8 % (21.3-54.2); Mean Corpuscular HGB Conc 29.7 GM/DL (32-36); Mean Corpuscular Volume 76.8 FL (87-102); Mean Platelet Volume 10.1 FL (9.6-12.0); Monocytes % 4.8 % (1.7-12.7); NRBC # 0.02 10*3/uL; Neutrophils % 79.5 % (38.7-73.9); Platelet Count 275 T/CUMM (130-400); Red Blood Count 4.87 MC/CUMM (3.8-5.5); Red Cell Distribution Width 18.5 % (9.3-17.3); White Blood Count 12.3 T/CUMM (4-12)
[2019-03-23 19:16] LABS: Alanine Aminotransferase 24 U/L (13-56); Albumin 2.2 G/DL (3.4-5.0); Alkaline Phosphatase 95 U/L (45-117); Aspartate Amino Transferase 20 U/L (0-37); Bilirubin,Total < 0.39 MG/DL (0.2-1.0); Blood Urea Nitrogen 9 MG/DL (7-18); Calcium 8.7 MG/DL (8.5-10.1); Estimated Glom Filtration Rate 127 ML/MIN; Glucose 223 MG/DL (74-106); Osmolality,Calculated 275.1 MOS/KG (273-304); Total Protein 7.3 G/DL (6.4-8.3)
[2019-03-23 19:17] LABS: Troponin I 0.029 NG/ML (0.00-0.045)
[2019-03-23] MEDS ORDERED: ENOXAPARIN 40 MG/0.4 ML SYRINGE SUBCUT SCH (21:00)
[2019-03-23] MEDS ORDERED: lisinopriL 20 MG TABLET PO SCH (21:00)
[2019-03-23] MEDS: GABAPENTIN 100 MG CAPSULE PO SCH (21:46)
[2019-03-23] MEDS: glipiZIDE 5 MG TABLET PO SCH (21:46)
[2019-03-23 22:47] LABS: Apearance,Urine CLEAR (Clear); Bilirubin,Urine Negative (Negative); Blood, Urine Negative (Negative); Glucose,Urine (UA) >=500 mg/dL (Negative); Hyaline Casts,Urine 7 /LPF (0-3); Ketones,Urine 20 mg/dL (Negative); Mucus,Urine Occasional /LPF (Occasional); Nitrite,Urine Negative (Negative); Protein,Urine >=500 MG/DL; RBC,Urine 3 /HPF (0-4); Squamous Epithelial Cell,Urine Occasional /HPF (0-10); Urine Color Yellow (Yellow); Urine Specific Gravity 1.035 (1.001-1.035); Urine Urobilinogen < 2.0 EU/DL (0.2-1.0); WBC,Urine 2 /HPF (0-6)
[2019-03-24 06:32] LABS: Risk Ratio 4.46
[2019-03-24] MEDS ORDERED: carvediloL 12.5 MG TABLET PO SCH (07:33)
[2019-03-24] MEDS ORDERED: metFORMIN 500 MG TABLET PO SCH ×2 (08:00)
[2019-03-24] MEDS ORDERED: DEXTROSE 50% 25 GM/50 ML VIAL IV PRN (08:53)
[2019-03-24] MEDS ORDERED: ATORVASTATIN 40 MG TABLET PO SCH (09:00)
[2019-03-24] MEDS ORDERED: lisinopriL 20 MG TABLET PO SCH (09:00)
[2019-03-24] MEDS: amLODIPine 10 MG TABLET PO SCH (09:05)
[2019-03-24] MEDS: glipiZIDE 5 MG TABLET PO SCH (09:05)
[2019-03-24] MEDS: PANTOPRAZOLE 40 MG TABLET PO SCH (09:05)
[2019-03-24] MEDS: GABAPENTIN 100 MG CAPSULE PO SCH (09:05)
[2019-03-24] MEDS: INSULIN REGULAR 100 UNIT/ML SUBCUT SCH ×2 (09:06→12:38)
[2019-03-24] MEDS: ASPIRIN EC 81 MG TABLET PO SCH (09:19)
[2019-03-24 12:29] VITALS: BP 144/105
== END 2019-03-24 02:40 | disposition home or self-care (01) ==
LOC: N.2W → SUATTDRO 15:01
PROVIDERS: ADMIT Internal Medicine; ATTEND Internal Medicine

== ENCOUNTER 2019-03-27 18:11 | Observation (INO) ==
[2019-03-27 18:48] LABS: Basophils % 0.1 % (0.0-0.8); Hematocrit 37.4 VOL% (35.7-47.0); Hemoglobin 11.2 GM/DL (12.0-16.0); Immature Granulocytes % 0.7 %; Lymphocytes # 1.7 10*3/uL (1.4-4.0); Lymphocytes % 12.5 % (21.3-54.2); Mean Corpuscular HGB Conc 29.9 GM/DL (32-36); Mean Corpuscular Volume 77.6 FL (87-102); Mean Platelet Volume 9.9 FL (9.6-12.0); Neutrophils % 81.7 % (38.7-73.9); Platelet Count 444 T/CUMM (130-400); Red Blood Count 4.82 MC/CUMM (3.8-5.5); Red Cell Distribution Width 18.3 % (9.3-17.3); White Blood Count 13.8 T/CUMM (4-12)
[2019-03-27 18:54] LABS: INR 0.9; PT Patient Result 9.7 SECS (9.6-12.2); Partial Thromboplastin Time 26.8 SECS (20.8-36.0)
[2019-03-27 19:06] LABS: Alanine Aminotransferase 20 U/L (13-56); Albumin 2.1 G/DL (3.4-5.0); Alkaline Phosphatase 80 U/L (45-117); Aspartate Amino Transferase 17 U/L (0-37); Bilirubin,Total < 0.39 MG/DL (0.2-1.0); Blood Urea Nitrogen 10 MG/DL (7-18); Calcium 8.9 MG/DL (8.5-10.1); Estimated Glom Filtration Rate 97 ML/MIN; Glucose 99 MG/DL (74-106); Osmolality,Calculated 271.8 MOS/KG (273-304); Total Protein 7.2 G/DL (6.4-8.3)
[2019-03-27] MEDS ORDERED: KETOROLAC 30 MG/1 ML VIAL IV STA (19:19)
[2019-03-27] MEDS ORDERED: ASPIRIN 325 MG TABLET PO STA (19:19)
[2019-03-27] MEDS ORDERED: MORPHINE 4 MG/1 ML VIAL IV STA (19:19)
[2019-03-27] MEDS ORDERED: ONDANSETRON 4 MG/2 ML VIAL IV STA (19:19)
[2019-03-27] MEDS ORDERED: METHOCARBAMOL 500 MG TABLET PO STA (19:20)
[2019-03-27] MEDS ORDERED: ENOXAPARIN 100 MG/ML SYRINGE SUBCUT STA (21:26)
[2019-03-27] MEDS ORDERED: GLUCAGON 1 MG VIAL IM PRN ×2 (22:27→22:33)
[2019-03-27] MEDS ORDERED: ONDANSETRON 4 MG/2 ML VIAL IV PRN (22:27)
[2019-03-27] MEDS ORDERED: ACETAMINOPHEN 325 MG TABLET PO PRN (22:27)
[2019-03-27] MEDS ORDERED: DEXTROSE 50% 25 GM/50 ML SYRINGE IV PRN (22:27)
[2019-03-27] MEDS ORDERED: DEXTROSE 50% 25 GM/50 ML VIAL IV PRN (22:33)
[2019-03-28] MEDS: INSULIN REGULAR 100 UNIT/ML SUBCUT SCH ×5 (00:29→21:37)
[2019-03-28] MEDS: MORPHINE 4 MG/1 ML VIAL IV PRN ×2 (05:21→15:31)
[2019-03-28] MEDS ORDERED: RIVAROXABAN 15 MG TABLET PO SCH (08:00)
[2019-03-28] MEDS ORDERED: POTASSIUM CHLORIDE 20 MEQ TABLET PO ONE (08:50)
[2019-03-28] MEDS: ATORVASTATIN 40 MG TABLET PO SCH (09:24)
[2019-03-28] MEDS: ASPIRIN EC 81 MG TABLET PO SCH (09:24)
[2019-03-28] MEDS: PANTOPRAZOLE 40 MG TABLET PO SCH (09:25)
[2019-03-28] MEDS: lisinopriL 10 MG TABLET PO SCH (09:25)
[2019-03-28] MEDS: amLODIPine 10 MG TABLET PO SCH (09:26)
[2019-03-28] MEDS: carvediloL 12.5 MG TABLET PO SCH ×2 (09:29→21:35)
[2019-03-28] MEDS: ENOXAPARIN 100 MG/ML SYRINGE SUBCUT SCH ×2 (09:30→21:40)
[2019-03-28 10:46] LABS: Bilirubin,Total 1.1 MG/DL (0.2-1.0); Calcium 8.6 MG/DL (8.5-10.1); Osmolality,Calculated 272.8 MOS/KG (273-304); Total Protein 6.9 G/DL (6.4-8.3)
[2019-03-28] MEDS: GABAPENTIN 100 MG CAPSULE PO SCH ×2 (15:36→21:35)
[2019-03-29] MEDS: ENOXAPARIN 100 MG/ML SYRINGE SUBCUT SCH (08:30)
[2019-03-29] MEDS: PANTOPRAZOLE 40 MG TABLET PO SCH (08:31)
[2019-03-29] MEDS: lisinopriL 10 MG TABLET PO SCH (08:31)
[2019-03-29] MEDS: ASPIRIN EC 81 MG TABLET PO SCH (08:31)
[2019-03-29] MEDS: amLODIPine 10 MG TABLET PO SCH (08:31)
[2019-03-29] MEDS: GABAPENTIN 100 MG CAPSULE PO SCH (08:32)
[2019-03-29] MEDS: INSULIN REGULAR 100 UNIT/ML SUBCUT SCH ×2 (08:32→13:31)
[2019-03-29] MEDS: carvediloL 12.5 MG TABLET PO SCH (08:32)
[2019-03-29] MEDS: ATORVASTATIN 40 MG TABLET PO SCH (08:32)
[2019-03-29 09:34] LABS: Calcium 8.3 MG/DL (8.5-10.1); Osmolality,Calculated 280.7 MOS/KG (273-304)
[2019-03-29 10:56] LABS: Basophils % 0.1 % (0.0-0.8); Eosinophils % 0.1 % (0.00-10.9)
[2019-03-29 11:14] LABS: Hematocrit 35.2 VOL% (35.7-47.0); Immature Granulocytes % 0.8 %; Immature Granulocytes Absolute 0.11 #; Lymphocytes # 1.4 10*3/uL (1.4-4.0); Lymphocytes % 10.4 % (21.3-54.2); Mean Corpuscular HGB Conc 29.3 GM/DL (32-36); Mean Corpuscular Volume 77.7 FL (87-102); Mean Platelet Volume 9.9 FL (9.6-12.0); Monocytes % 5.1 % (1.7-12.7); Neutrophils % 83.5 % (38.7-73.9); Platelet Count 430 T/CUMM (130-400); Red Blood Count 4.53 MC/CUMM (3.8-5.5); Red Cell Distribution Width 18.5 % (9.3-17.3); White Blood Count 13.5 T/CUMM (4-12)
[2019-03-29 11:16] LABS: Hemoglobin 10.3 GM/DL (12.0-16.0)
[2019-03-29 13:28] VITALS: BP 136/89
== END 2019-03-29 16:00 | disposition home or self-care (01) ==
LOC: N.ED 18:11 → N.EDINP 18:11 → N.2W 22:48
PROVIDERS: ADMIT Internal Medicine; ATTEND Internal Medicine